=== PATIENT | female | born 1945 | race Caucasian/White ===

== ENCOUNTER → 2017-10-11 | Outpatient (CLI) | payer MEDICARE, OTHER ==
[~2017-10-11] MED LIST: AMIT-106 PO; AMLO-96 PO; ASPI81TA94 PO; EXEN2PEN SC; FLU180SY9 IM; FLU60SYR30 IM ONLY; GABA-503 PO; INSU100I10 SUBQ; LANI SUBQ; LEV125 PO; LEVO175T42 PO; LEVO200T50 PO; LOSA100T67 PO; NAPR220C12 PO; OMEP-137 PO; PEN1DIS. MC; PRAV20TA66 PO; SITA100T PO; TRAZ-156 PO; TRIA1CAP81 PO
== END ==
LOC: LAB 16:16
PROVIDERS: ATTEND Emergency Medicine
DX: E03.9 Hypothyroidism, unspecified (principal); E11.9 Type 2 diabetes mellitus without complications
CPT/HCPCS: 36415; 83036; 84443

== ENCOUNTER → 2017-10-22 | Outpatient (CLI) | payer MEDICARE, OTHER ==
[~2017-10-22] MED LIST changes: +ZOLCR625PT PO; +ZOLP-358 PO
--- NOTE | 2017-10-22 11:40 | RADIOLOGY IMAGING REPORT ---
[place] [facility] [place] NAME: Maribel So : 1945 MR: [id number] V: [id number] EXAM DATE: ORDERING PHYSICIAN: TRAVON BUSBY TECHNOLOGIST: [place] [facility] [place] So : 1945 Visit/Account:[id number] Date of Sevice: 10/22/2017 BONE MINERAL DENSITY HISTORY: postmenopausal COMPARISON: None. FINDINGS: LUMBAR SPINE: Bone mineral density (BMD) measured from L1-L4 correlates with a Z-score of 2.9 and a T-score of 2.0 which is normal as defined by the World Health Organization. The corresponding risk of fracture in t he lumbar spine is not increased compared with a young adult reference population. HIP: Bone mineral density (BMD) measured in the left hip or femoral neck region correlates with a Z-score of 0.2 and a T-score of -1.0 which is normal as defined by the World Health Organization. The corre sponding risk of fracture in the hip is not increased compared with a young adult reference populatio n. Bone mineral density (BMD) measured in the left Femoral Neck region measures 0.894 g/cm2. IMPRESSION: 1. Lumbar spine: Normal. 2. Left Hip: Normal. 3. Left Femoral Neck: Bone Mineral Density is 0.894 g/cm2. FRAX? WHO Fracture Risk Assessment Tool link: <http://www.shef.ac.uk/FRAX/tool.jsp?locationValue=9> PLEASE NOTE: 1) The World Health Organization defines low BMD as follows: T-score Normal > -1 Osteopenia < -1 and > -2.5 Osteoporosis < -2.5 without fractures Established osteoporosis < -2.5 with fractures 2) In general, you may wish to consider: Diagnosis Treatment Follow-up DEXA Normal BMD Prevention 2-3 years Osteopenia Prevention/therapy 1-2 years Osteoporosis Therapy Yearly 3) Fracture risk estimated from the T-score is more accurate for vertebral fractures (often spontane ous) than for hip fractures. Report Dictated By: Balaji Cha at 10/22/2017 11:30 AM Report E-Signed By: Balaji Cha at 10/22/2017 11:36 AM WSN:[id number]
--- NOTE | 2017-11-13 10:10 | RADIOLOGY IMAGING REPORT ---
FACILITY: [facility] PATIENT NAME: MARISABEL CHINCHILLA : [id number] MR: [id number] V: [id number] EXAM DATE: [id number] ORDERING PHYSICIAN: TRAVON BUSBY TECHNOLOGIST: Manuela Gregorio PROCEDURE:BILATERAL DIGITAL SCREENING MAMMOGRAM WITH CAD ASSISTED INTERPRETATION & 3D TOMOSYNTHESIS COMPARISON:None are available at this time. The previous mammograms have been requested however they have not been received. If these mammograms do become available an addendum can be dictated at that time. INDICATIONS:postmenopausal FINDINGS: Mildly heterogeneous fibroglandular tissue is seen throughout the breasts. There are several focal areas of increased density in the upper portion of the Right breast in the Right MLO view for which a sport compression view is recommended. There are several focal areas of increased density in the upper portion of the Left breast on the Left MLO view for which spot compression view is recommended. DIAGNOSTIC CATEGORY 0--INCOMPLETE: NEED ADDITIONAL IMAGING EVALUATION. RECOMMENDATIONS: ADDITIONAL MAMMOGRAPHIC VIEWS REQUIRED: BILATERAL BREASTS. IMPRESSION: BIRADS 0: Incomplete Additional views of both breasts is recommended as described. Dictated by: Paola Gonzalez M.D. on 11/12/2017 at 17:09 Transcribed by: ARLETTE on 11/13/2017 at 8:24 Approved by: Paola Gonzalez M.D. on 11/13/2017 at 10:09 [facility]
== END ==
LOC: MAMO 02:26
PROVIDERS: ATTEND Emergency Medicine
DX: Z13.820 Encounter for screening for osteoporosis (principal); Z12.31 Encounter for screening mammogram for malignant neoplasm of breast; Z78.0 Asymptomatic menopausal state; R92.8 Other abnormal and inconclusive findings on diagnostic imaging of breast
CPT/HCPCS: 77063; 77067; 77080

== ENCOUNTER 2017-11-19 10:48 | Observation (INO) | payer MEDICARE, OTHER ==
[~2017-11-19] VITALS: Ht 167.6 cm; Wt 93.2 kg
[2017-11-19] MEDS ORDERED: NS(*) 0.9% 500 ML BAG 500 ML IV ONE (10:56)
--- NOTE | 2017-11-19 11:03 | ER Report ---
History and Physical Time Seen By : 11:03 Hx. of Stated Complaint: weakness, syncope dysuria voiding 40 times daily HPI/ROS 72 year old female body aches weakness and dysuria x 4 days , unsteady on feet, today was being interviewed while sitting up in the er and had a syncopal episode, recovered when layed flat, orthostatics checked and was not orthostatic . recent med change for hypothyroidism and new script ambien for insomnia Allergies: Coded Allergies: codeine (Verified Allergy, Intermediate, rash, 11/19/17) Home Meds Active Scripts Zolpidem Tartrate (ZOLPIDEM TARTRATE) 10 Mg Tablet, 0.5 TAB PO QHS, #14 TAB Take half to one tab at night as needed. Prov:TRAVON BUSBY MD 11/15/17 Losartan Potassium (LOSARTAN POTASSIUM) 100 Mg Tablet, 100 MG PO DAILY, #90 TAB 3 Refills Prov:TRAVON BUSBY MD 10/26/17 Levothyroxine Sodium (LEVOTHYROXINE SODIUM) 0.125 Mg Tab, 1 TAB PO QDAY, #45 TAB 0 Refills Prov:TRAVON BUSBY MD 10/12/17 Insulin Glargine,Hum.rec.anlog (Basaglar Kwikpen U-100) 100 Unit/Ml (3 Ml) Insuln.pen, 60 UNITS SUBQ DAILY, #2 BOX 7 Refills Prov:TRAVON BUSBY MD 10/01/17 Pen Needle, Diabetic, Safety (PEN NEEDLE) 1 Each Dis.needle, BOX [facility] DIRECTED , #1 1 Refill use to inject Bydureon weekly Prov:TRAVON BUSBY MD 08/15/17 Exenatide Microspheres (Bydureon Pen) 2 Mg/0.65 Ml Pen.injctr, 2 MG SC Q7DAY, # 4 CART 11 Refills Prov:TRAVON BUSBY MD 08/15/17 Omeprazole (OMEPRAZOLE) 20 Mg Tablet.dr, 20 MG PO DAILY, #90 TAB 3 Refills Prov:TRAVON BUSBY MD 08/15/17 Reported Medications Aspirin (ASPIRIN) 81 Mg Tab.chew, 81 MG PO DAILY, TAB.CHEW 07/25/17 Triamterene/Hydrochlorothiazid (DYAZIDE 37.5-25 CAPSULE) 1 Each Capsule, 1 CAP PO DAILY, CAPSULE 07/25/17 Discontinued Reported Medications Gabapentin (GABAPENTIN) 600 Mg Tablet, 600 MG PO DAILY, TAB 08/15/17 Discontinued Scripts Zolpidem Tartrate (AMBIEN CR) 6.25 Mg Tab.mphase, 1 TAB PO QODAY, #14 TAB 5 Refills Prov:KEHINDETRAVON Murphy MD 10/26/17 Past Medical/Surgical History History of hypertension, GERD, hypothyroidism, type II diabetes Reviewed Nurses Notes: Yes Old Medical Records Reviewed: Yes Smoking Status: Never Smoker Family History of: HTN Constitutional Vital Sign - Last 24 Hours 11/19/17 11/19/17 11/19/17 11/19/17 10:48 10:53 10:58 11:00 Pulse 81 91 90 B/P (MAP) 107/75 (86) Pulse Ox 98 96 11/19/17 11/19/17 11/19/17 11/19/17 11:00 11:03 11:08 11:13 Temp 98.1 Pulse 69 86 83 78 Resp 16 B/P (MAP) 153/81 Pulse Ox 96 100 99 95 11/19/17 11/19/17 11/19/17 11/19/17 11:25 11:27 11:27 11:28 Pulse 61 62 70 B/P (MAP) 171/88 (115) 170/85 (113) 171/88 (115) Pulse Ox 97 97 11/19/17 11/19/17 11/19/17 11/19/17 11:28 11:42 11:55 12:00 Pulse 63 54 B/P (MAP) 165/87 (113) 174/94 (120) ???/??? (1665) Pulse Ox 97 95 11/19/17 11/19/17 11/19/17 11/19/17 12:15 12:25 12:30 12:45 Pulse 55 B/P (MAP) 154/87 (109) 163/81 (108) 159/77 (104) Pulse Ox 96 11/19/17 11/19/17 11/19/17 11/19/17 12:55 13:00 13:11 13:15 Pulse 56 B/P (MAP) 164/76 (105) 172/118 (136) 157/82 (107) Pulse Ox 94 11/19/17 11/19/17 11/19/1718 13:20 13:50 14:00 14:15 Pulse 55 60 B/P (MAP) 157/79 (105) 151/136 (141) Pulse Ox 95 94 Intake and Output 11/19/17 11/19/17 11/20/17 15:00 23:00 07:00 Intake Total 550 ml Balance 550 ml Physical Exam 72-year-old female alert anxious mild distress HEENT has normocephalic atraumatic pupils are equal reactive to light EOM intact tympanic membranes are non-reddened throat is non-reddened neck is supple no JVD heart rate is regular no murmurs rubs and gallops lungs clear to auscultation abdomen is obese soft bowel sounds 4 quadrants moves all extremities no focal deficits neurologically grossly intact 2-12, gcs 15 Medical Decision Making Data Points Result Diagram: 11/19/17 1104 11/19/17 1104 Laboratory Hematology Test 11/19/17 11:04 11/19/17 11:11 11/19/17 11:25 11/19/17 12:40 Red Blood Count 4.92 M/uL (4.17-5.56) Mean Corpuscular Volume 83.7 fL (80.0-96.0) Mean Corpuscular Hemoglobin 28.7 pg (26.0-33.0) Mean Corpuscular Hemoglobin Concent 34.3 g/dL (32.0-36.0) Red Cell Distribution Width 13.2 % (11.5-14.5) Mean Platelet Volume 7.9 fL (7.2-11.1) Neutrophils (%) (Auto) 62.1 % (39.4-72.5) Lymphocytes (%) (Auto) 26.1 % (17.6-49.6) Monocytes (%) (Auto) 7.4 % (4.1-12.4) Eosinophils (%) (Auto) 3.4 % (0.4-6.7) Basophils (%) (Auto) 1.0 % (0.3-1.4) Nucleated RBC Relative Count (auto) 0.2 /100WBC Neutrophils # (Auto) 2.9 K/uL (2.0-7.4) Lymphocytes # (Auto) 1.2 K/uL (1.3-3.6) Monocytes # (Auto) 0.3 K/uL (0.3-1.0) Eosinophils # (Auto) 0.2 K/uL (0.0-0.5) Basophils # (Auto) 0.0 K/uL (0.0-0.1) Nucleated RBC Absolute Count (auto) 0.01 K/uL Erythrocyte Sedimentation Rate 27 mm/HOUR (0-30) Sodium Level 136 mmol/L (137-145) Potassium Level 3.6 mmol/L (3.5-5.0) Chloride Level 100 mmol/L (98-107) Carbon Dioxide Level 21 mmol/L (22-31) Blood Urea Nitrogen 19 mg/dl (7-18) Creatinine 1.60 mg/dl (0.52-1.04) Glomerular Filtration Rate Calc 31.8 Random Glucose 112 mg/dl (75-110) Calcium Level 9.6 mg/dl (8.4-10.2) Magnesium Level 1.3 mg/dl (1.7-2.2) Total Bilirubin 0.6 mg/dl (0.2-1.3) Aspartate Amino Transf (AST/SGOT) 24 U/L (0-35) Alanine Aminotransferase (ALT/SGPT) 34 U/L (0-56) Alkaline Phosphatase 77 U/L (0-126) Troponin I < 0.012 ng/ml C-Reactive Protein < 0.5 mg/dl (<1.0) Total Protein 7.0 gm/dl (6.3-8.2) Albumin 3.8 g/dl (3.5-5.0) Thyroid Stimulating Hormone (TSH) 2.26 uIU/ml (0.46-4.68) Influenza Virus Type A (PCR) Negative (NEGATIVE) Influenza Virus Type B (PCR) Negative (NEGATIVE) Whole Blood Glucose 95 mg/DL (75-110) Group A Streptococcus Screen Negative (NEGATIVE) Test 11/19/17 13:13 Urine Color Yellow Urine Clarity Clear Urine pH 6.0 pH (4.8-9.5) Urine Specific [place] 1.010 Urine Protein Negative mg/dL (NEGATIVE) Urine Glucose (UA) Negative mg/dL (NEGATIVE) Urine Ketones Negative mg/dL (NEGATIVE) Urine Blood Negative (NEGATIVE) Urine Nitrite Negative (NEGATIVE) Urine Bilirubin Negative (NEGATIVE) Urine Urobilinogen Negative mg/dL (0.2-1.9) Urine Leukocyte Esterase Trace (NEGATIVE) Urine RBC <1 /HPF (0-2/HPF) Urine WBC 3 /HPF (0-5/HPF) Urine Squamous Epithelial Cells Many /LPF (</=FEW) Urine Bacteria Negative /HPF (NONE-FEW) Urine Hyaline Casts Few /LPF (NONE-FEW) Urine Mucus None /HPF (NONE-FEW) Chemistry Test 11/19/17 11:04 11/19/17 11:11 11/19/17 11:25 11/19/17 12:40 White Blood Count 4.7 k/uL (4.5-11.0) Red Blood Count 4.92 M/uL (4.17-5.56) Hemoglobin 14.1 g/dL (12.0-16.0) Hematocrit 41.1 % (34.0-47.0) Mean Corpuscular Volume 83.7 fL (80.0-96.0) Mean Corpuscular Hemoglobin 28.7 pg (26.0-33.0) Mean Corpuscular Hemoglobin Concent 34.3 g/dL (32.0-36.0) Red Cell Distribution Width 13.2 % (11.5-14.5) Platelet Count 211 K/uL (150-450) Mean Platelet Volume 7.9 fL (7.2-11.1) Neutrophils (%) (Auto) 62.1 % (39.4-72.5) Lymphocytes (%) (Auto) 26.1 % (17.6-49.6) Monocytes (%) (Auto) 7.4 % (4.1-12.4) Eosinophils (%) (Auto) 3.4 % (0.4-6.7) Basophils (%) (Auto) 1.0 % (0.3-1.4) Nucleated RBC Relative Count (auto) 0.2 /100WBC Neutrophils # (Auto) 2.9 K/uL (2.0-7.4) Lymphocytes # (Auto) 1.2 K/uL (1.3-3.6) Monocytes # (Auto) 0.3 K/uL (0.3-1.0) Eosinophils # (Auto) 0.2 K/uL (0.0-0.5) Basophils # (Auto) 0.0 K/uL (0.0-0.1) Nucleated RBC Absolute Count (auto) 0.01 K/uL Erythrocyte Sedimentation Rate 27 mm/HOUR (0-30) Glomerular Filtration Rate Calc 31.8 Calcium Level 9.6 mg/dl (8.4-10.2) Magnesium Level 1.3 mg/dl (1.7-2.2) Total Bilirubin 0.6 mg/dl (0.2-1.3) Aspartate Amino Transf (AST/SGOT) 24 U/L (0-35) Alanine Aminotransferase (ALT/SGPT) 34 U/L (0-56) Alkaline Phosphatase 77 U/L (0-126) Troponin I < 0.012 ng/ml C-Reactive Protein < 0.5 mg/dl (<1.0) Total Protein 7.0 gm/dl (6.3-8.2) Albumin 3.8 g/dl (3.5-5.0) Thyroid Stimulating Hormone (TSH) 2.26 uIU/ml (0.46-4.68) Influenza Virus Type A (PCR) Negative (NEGATIVE) Influenza Virus Type B (PCR) Negative (NEGATIVE) Whole Blood Glucose 95 mg/DL (75-110) Group A Streptococcus Screen Negative (NEGATIVE) Test 11/19/17 13:13 Urine Color Yellow Urine Clarity Clear Urine pH 6.0 pH (4.8-9.5) Urine Specific [place] 1.010 Urine Protein Negative mg/dL (NEGATIVE) Urine Glucose (UA) Negative mg/dL (NEGATIVE) Urine Ketones Negative mg/dL (NEGATIVE) Urine Blood Negative (NEGATIVE) Urine Nitrite Negative (NEGATIVE) Urine Bilirubin Negative (NEGATIVE) Urine Urobilinogen Negative mg/dL (0.2-1.9) Urine Leukocyte Esterase Trace (NEGATIVE) Urine RBC <1 /HPF (0-2/HPF) Urine WBC 3 /HPF (0-5/HPF) Urine Squamous Epithelial Cells Many /LPF (</=FEW) Urine Bacteria Negative /HPF (NONE-FEW) Urine Hyaline Casts Few /LPF (NONE-FEW) Urine Mucus None /HPF (NONE-FEW) Urinalysis Test 11/19/17 13:13 Urine Color Yellow Urine Clarity Clear Urine pH 6.0 pH (4.8-9.5) Urine Specific [place] 1.010 Urine Protein Negative mg/dL (NEGATIVE) Urine Glucose (UA) Negative mg/dL (NEGATIVE) Urine Ketones Negative mg/dL (NEGATIVE) Urine Blood Negative (NEGATIVE) Urine Nitrite Negative (NEGATIVE) Urine Bilirubin Negative (NEGATIVE) Urine Urobilinogen Negative mg/dL (0.2-1.9) Urine Leukocyte Esterase Trace (NEGATIVE) Urine RBC <1 /HPF (0-2/HPF) Urine WBC 3 /HPF (0-5/HPF) Urine Squamous Epithelial Cells Many /LPF (</=FEW) Urine Bacteria Negative /HPF (NONE-FEW) Urine Hyaline Casts Few /LPF (NONE-FEW) Urine Mucus None /HPF (NONE-FEW) EKG/Imaging EKG Interpretation EKG at 1104 normal sinus rhythm ventricular rate 68 QTC is 469 and unchanged from previous EKG dated 07/25/2017 ED Course/Re-evaluation Clinical Indication for ER IV: Hydration ED Course In the emergency room was given normal saline at 500 mL bolus and 100 mL an hour was even magnesium 2 g IV piggyback and felt some better after treatment still becomes weak when sitting Re-evaluation Talk the hospitalist Dr. Holli Colby she agrees to accept this patient will be admitted from the emergency room Decision to Disposition Date: Nov 19, 2017 Decision to Disposition Time: 14:06 Depart Departure Latest Vital Signs Vital Signs Date Time Temp Pulse Resp B/P (MAP) Pulse Ox O2 Delivery O2 Flow Rate FiO2 11/19/17 14:15 151/136 (141) 11/19/17 13:50 60 94 11/19/17 11:00 98.1 16 Impression: Primary Impression: Syncope and collapse Additional Impression: Hypomagnesemia Condition: Improved Disposition: Admitted from ER Referrals: TRAVON BUSBY MD (PCP) Problem Qualifiers VASHTI MERCHANT Nov 19, 2017 11:03
[2017-11-19 11:25] LABS: PLATELET COUNT, AUTOMATED 211 K/uL (150-450)
[2017-11-19] MEDS ORDERED: MAGNESIUM SUL* 2 GM/50 ML IVPB 50 ML IVPB ONE (11:45)
--- NOTE | 2017-11-19 12:09 | RADIOLOGY IMAGING REPORT ---
FACILITY: [facility] [place] PATIENT NAME: Maribel So : 1945 MR: [id number] V: [id number] EXAM DATE: ORDERING PHYSICIAN: VASHTI MERCHANT TECHNOLOGIST: Location: [facility] Patient: Maribel So : 1945 Visit/Account:[id number] Date of Sevice: 11/19/2017 CHEST SINGLE AP Indication: Fever. Comparison: 07/25/2017. Findings: Cardiac silhouette is upper limits of normal for size for the technique. Not significantly changed. M ediastinal silhouette and pulmonary vessels within normal limits. There is no focal infiltrate or lobar consolidation. No nodule. Chronic interstitial changes. Upper abdomen is unremarkable. No acute bony abnormality. IMPRESSION: 1. No acute cardiopulmonary process. Report Dictated By: Pedro Martinez at 11/19/2017 12:01 PM Report E-Signed By: Pedro Martinez at 11/19/2017 12:04 PM WSN:[id number]
--- NOTE | 2017-11-19 12:41 | RADIOLOGY IMAGING REPORT ---
FACILITY: [facility] PATIENT NAME: Maribel So : 1945 MR: [id number] V: [id number] EXAM DATE: ORDERING PHYSICIAN: VASHTI MERCHANT TECHNOLOGIST: Location: [facility] - [place] Patient: Maribel So : 1945 Visit/Account:[id number] Date of Sevice: 11/19/2017 CT OF THE BRAIN WITHOUT CONTRAST HISTORY: Fever PROCEDURE: 3.0 mm contiguous axial sections were performed through the brain. Sagittal and coronal r eformats were submitted. COMPARISON: None FINDINGS: BRAIN: Brain and intracranial structures: There is no mass lesion, hemorrhage or acute infarct. Orbits (included portions): Unremarkable. Scalp: Normal. Skull: Normal. Paranasal sinuses and mastoid air cells (included portions): Normal. IMPRESSION: No evidence of acute intracranial abnormality by CT. One of the following dose optimization techniques was utilized in the performance of this exam: Autom ated exposure control; adjustment of the mA and/or kV according to the patient's size; or use of an i terative reconstruction technique. Specific details can be referenced in the facility's radiology C T exam operational policy. Report Dictated By: Farooq Rodriguez MD at 11/19/2017 12:23 PM Report E-Signed By: Farooq Rodriguez MD at 11/19/2017 12:36 PM WSN:[id number]
--- NOTE | 2017-11-19 12:50 | EKG ---
[place] [facility] [place] NAME: MARISABEL CHINCHILLA : [id number] MR: [id number] V: [id number] EXAM DATE: ORDERING PHYSICIAN: VASHTI MERCHANT TECHNOLOGIST: Test Reason : SYNCOPE Blood Pressure : / mmHG Vent. Rate : 068 BPM Atrial Rate : 068 BPM P-R Int : 200 ms QRS Dur : 090 ms QT Int : 442 ms P-R-T Axes : 021 -47 045 degrees QTc Int : 469 ms Normal sinus rhythm Left axis deviation Septal infarct (cited on or before 25-JUL-2017) Abnormal ECG When compared with ECG of 25-JUL-2017 10:55, Questionable change in initial forces of Septal leads Confirmed by CHIDI KIM ([id number]) on 11/19/2017 8:07:30 PM Referred By: RICO Confirmed By:CHIDI KIM
[2017-11-19 15:14] VITALS: BP 197/88
[2017-11-19] MEDS ORDERED: GABA-503 PO (15:47)
[2017-11-19] MEDS ORDERED: NS(*) 0.9% 1000 ML BAG 1,000 ML IV PRN (16:17)
[2017-11-19] MEDS ORDERED: ACETAMINOPHEN 325 MG TAB PO PRN (16:20)
[2017-11-19] MEDS ORDERED: INSULIN HUM LISPRO 100 UN/ML 3 ML VIAL SUBQ PRN (16:20)
--- NOTE | 2017-11-19 17:26 | History & Physical ---
History of Present Illness Chief Complaint Has been feeling horrible. Syncopal episode in ER History of Present Illness The patient is a 72 year old female with PMH significant for type II DM and HTN who presents with "not feeling well" for several weeks. History is obtained from the patient and her . The patient was started on Bydurean about 2 months ago and takes one SQ injection weekly. She has been on Lantus as well. She notes that she has increased her Lantus on her own from 60 to 64 units q am. She did this several days ago and then began having "sweats" at times. She checks her blood sugars in the morning only. She states that her last am blood sugar check was 84 prior to admission. The patient also notes that she can not do much without stopping to rest. Her notes that this is very unusual for her and she is usually very energetic. She has tried to exercise but can't due to needing to stop and rest. She has lived in [place] for over 6 months. She lived in [place], [place] for 2 months prior to moving to [place] (elevation [phone]'). Prior to that she lived in [place]. She does have a strong FH of CAD. Her father had his first ME at age 47. The patient has multiple risk factors including HTN, type II DM and hyperlipidemia (pravastatin was recommended but she declined it). She has never smoked. The patient states she occasionally has chest pressure. She does get short of breath at times as well. The patient also notes that she recently "weaned" herself off of gabapentin. She misunderstood what why she was taking it (she thought it was for "nerves" instead of neuropathy). She has neuropathy and her symptoms have worsened since stopping it completely 2 weeks ago. She also notes that she has started having an increase in panic attacks which were much better while she was on the gabapentin. The patient also has a long history of insomnia. She has taken Ambien in the past but ran out and didn't get a refill. She recently was restarted on Ambien by Dr. Lopez. She has severe night terrors and nightmares with melatonin. She has tried trazodone without any result. The OTC meds such as Tylenol PM have the opposite effect on her. The patient presented to [facility] ER today for evaluation. While she was getting undressed, she had a syncopal episode (prior to being placed on the monitor). EKG showed no acute ischemic changes. Troponin was negative. She was found to have a low magnesium level and was given 2 grams in the ER. She had an elevated creatinine as well. She was recommended for admission for observation and further evaluation. History Problems: (1) Lower extremity edema Status: Chronic (2) Hyperlipidemia Status: Chronic (3) Hypertension Status: Chronic (4) Hypothyroidism Status: Chronic (5) GERD (gastroesophageal reflux disease) Status: Chronic (6) Insulin-requiring or dependent type II diabetes mellitus Status: Chronic (7) Obesity Status: Chronic (8) Hx of tubal ligation Status: Resolved (9) H/O: hysterectomy Status: Resolved (10) S/P appy Status: Resolved Home Meds Active Scripts Zolpidem Tartrate (ZOLPIDEM TARTRATE) 10 Mg Tablet, 0.5 TAB PO QHS, #14 TAB Take half to one tab at night as needed. Prov:TRAVON LOPEZ MD 11/15/17 Losartan Potassium (LOSARTAN POTASSIUM) 100 Mg Tablet, 100 MG PO DAILY, #90 TAB 3 Refills Prov:TRAVON LOPEZ MD 10/26/17 Levothyroxine Sodium (LEVOTHYROXINE SODIUM) 0.125 Mg Tab, 1 TAB PO QDAY, #45 TAB 0 Refills Prov:TRAVON LOPEZ MD 10/12/17 Insulin Glargine,Hum.rec.anlog (Basaglar Kwikpen U-100) 100 Unit/Ml (3 Ml) Insuln.pen, 60 UNITS SUBQ DAILY, #2 BOX 7 Refills Prov:TRAVON LOPEZ MD 10/01/17 Pen Needle, Diabetic, Safety (PEN NEEDLE) 1 Each Dis.needle, BOX MC DIRECTED , #1 1 Refill use to inject Bydureon weekly Prov:TRAVON LOPEZ MD 08/15/17 Exenatide Microspheres (Bydureon Pen) 2 Mg/0.65 Ml Pen.injctr, 2 MG SC Q7DAY, # 4 CART 11 Refills Prov:TRAVON LOPEZ MD 08/15/17 Omeprazole (OMEPRAZOLE) 20 Mg Tablet.dr, 20 MG PO DAILY, #90 TAB 3 Refills Prov:TRAVON LOPEZ MD 08/15/17 Reported Medications Gabapentin (GABAPENTIN) 600 Mg Tablet, 600 MG PO QDAY 11/19/17 Aspirin (ASPIRIN) 81 Mg Tab.chew, 81 MG PO DAILY, TAB.CHEW 07/25/17 Triamterene/Hydrochlorothiazid (DYAZIDE 37.5-25 CAPSULE) 1 Each Capsule, 1 CAP PO DAILY, CAPSULE 07/25/17 Discontinued Reported Medications Gabapentin (GABAPENTIN) 600 Mg Tablet, 600 MG PO DAILY, TAB 08/15/17 Discontinued Scripts Zolpidem Tartrate (AMBIEN CR) 6.25 Mg Tab.mphase, 1 TAB PO QODAY, #14 TAB 5 Refills Prov:TRAVON LOPEZ MD 10/26/17 Allergies: Coded Allergies: codeine (Verified Allergy, Intermediate, rash, 11/19/17) melatonin (Verified Allergy, Mild, Nightmares/night terrors, 11/19/17) Patient History: FH: COPD (chronic obstructive pulmonary disease) FATHER, , Age:85 BROTHER OR SISTER, FH: cancer MOTHER (Throat cancer ), , Age:70 (throat cancer initially, in remission for 17 years; then bone, lung, brain cancer. ) FH: heart disease FATHER, , Age:85, Onset:40's - 50 Hx Smoking: No Smoking Status: Never Smoker Caffeine Intake: Coffee Caffeine/Cups Per Day: 1 cup/day Hx Alcohol Use: No Hx Substance Use Disorder: No Social Drug Use: Never History of IV Drug Use: No Review of Systems Constitutional: Weight Loss (Since starting Bydureon.), Other (Sweats at times for several days.) Neurological: Syncope, Weakness, Dizziness Eyes: No Vision Change ENT: No Hearing Loss Cardiovascular: Chest Pain (Occasional.) Respiratory: Shortness of Breath, No Cough Gastrointestinal: Nausea (Mild with Bydureon. ), No Vomiting, No Diarrhea Genitourinary: No Dysuria Musculoskeletal: No Pain Psychiatric: Anxiety (Panic attacks since stopping gabapentin.) Exam Vital Signs Vital Signs Date Time Temp Pulse Resp B/P (MAP) Pulse Ox O2 Delivery O2 Flow Rate FiO2 11/19/17 15:14 97.6 55 197/88 (124) 94 Room Air 11/19/17 11:00 16 General Appearance: Alert, Awake, Other (Appears sligthly anxious.) Neuro: Other (Occasional difficulty finding words. ) Cardiovascular: Regular Rate and Rhythm Respiratory: Clear to Auscultation GI: Abd Soft and Non-Tender Extremities: Warm, Pulses (Full and equal, both feet.), Perfused Integumentary: Skin Intact without Lesion / Mass Psych: Alert & Oriented X3, Appropriate Mood & Affect Medical Decision Making Data Points Result Diagram: 11/19/17 1104 11/19/17 1104 Item Value Date Time Triglycerides Level 259 mg/dl H 08/16/17 1007 Cholesterol Level 263 mg/dl H 08/16/17 1007 LDL Cholesterol 166 mg/dl 08/16/17 1007 VLDL Cholesterol 52 mg/dl 08/16/17 1007 HDL Cholesterol 45 mg/dl 08/16/17 1007 Percent HDL Cholesterol 17.0 % 08/16/17 1007 Cholesterol Ratio (LDL/HDL) 3.68 08/16/17 1007 Cholesterol/HDL Ratio 5.8 08/16/17 1007 Item Value Date Time Random Glucose 112 mg/dl H 11/19/17 1104 Calcium Level 9.6 mg/dl 11/19/17 1104 Total Bilirubin 0.6 mg/dl 11/19/17 1104 Aspartate Amino Transf (AST/SGOT) 24 U/L 11/19/17 1104 Alanine Aminotransferase (ALT/SGPT) 34 U/L 11/19/17 1104 Alkaline Phosphatase 77 U/L 11/19/17 1104 Total Protein 7.0 gm/dl 11/19/17 1104 Albumin 3.8 g/dl 11/19/17 1104 C-Reactive Protein < 0.5 mg/dl 11/19/17 1104 Magnesium Level 1.3 mg/dl L 11/19/17 1104 Troponin I < 0.012 ng/ml 11/19/17 1104 Thyroid Stimulating Hormone (TSH) 2.26 uIU/ml 11/19/17 1104 Influenza Virus Type A (PCR) Negative 11/19/17 1111 Influenza Virus Type B (PCR) Negative 11/19/17 1111 Group A Streptococcus Screen Negative 11/19/17 1240 Urine Color Yellow 11/19/17 1313 Urine Clarity Clear 11/19/17 1313 Urine pH 6.0 pH 11/19/17 1313 Urine Specific [place] 1.010 11/19/17 1313 Urine Protein Negative mg/dL 11/19/17 1313 Urine Glucose (UA) Negative mg/dL 11/19/17 1313 Urine Ketones Negative mg/dL 11/19/17 1313 Urine Blood Negative 11/19/17 1313 Urine Nitrite Negative 11/19/17 1313 Urine Bilirubin Negative 11/19/17 1313 Urine Urobilinogen Negative mg/dL 11/19/17 1313 Urine Leukocyte Esterase Trace H 11/19/17 1313 Urine RBC <1 /HPF 11/19/17 1313 Urine WBC 3 /HPF 11/19/17 1313 Urine Squamous Epithelial Cells Many /LPF H 11/19/17 1313 Urine Bacteria Negative /HPF 11/19/17 1313 Urine Hyaline Casts Few /LPF 11/19/17 1313 Urine Mucus None /HPF 11/19/17 1313 EKG / Imaging EKG Interpretation FACILITY: [facility] [place] PATIENT NAME: MARIBEL SO : [id number] MR: [id number] V: [id number] EXAM DATE: ORDERING PHYSICIAN: VASHTI MERCHANT TECHNOLOGIST: Test Reason : SYNCOPE Blood Pressure : / mmHG Vent. Rate : 068 BPM Atrial Rate : 068 BPM P-R Int : 200 ms QRS Dur : 090 ms QT Int : 442 ms P-R-T Axes : 021 -47 045 degrees QTc Int : 469 ms Normal sinus rhythm Left axis deviation Low voltage QRS Septal infarct (cited on or before 25-JUL-2017) Abnormal ECG When compared with ECG of 25-JUL-2017 10:55, Questionable change in initial forces of Septal leads Referred By: SOPR Confirmed By: 1104 T: / Imaging FACILITY: [facility] [place] PATIENT NAME: Maribel So : 1945 MR: [id number] V: [id number] EXAM DATE: [id number] ORDERING PHYSICIAN: VASHTI MERCHANT TECHNOLOGIST: Location: [facility] [place] Patient: Maribel So : 1945 Visit/Account:[id number] Date of Sevice: 11/19/2017 CT OF THE BRAIN WITHOUT CONTRAST HISTORY: Fever PROCEDURE: 3.0 mm contiguous axial sections were performed through the brain. Sagittal and coronal reformats were submitted. COMPARISON: None FINDINGS: BRAIN: Brain and intracranial structures: There is no mass lesion, hemorrhage or acute infarct. Orbits (included portions): Unremarkable. Scalp: Normal. Skull: Normal. Paranasal sinuses and mastoid air cells (included portions): Normal. IMPRESSION: No evidence of acute intracranial abnormality by CT. One of the following dose optimization techniques was utilized in the performance of this exam: Automated exposure control; adjustment of the mA and/ or kV according to the patient's size; or use of an iterative reconstruction technique. Specific details can be referenced in the facility's radiology CT exam operational policy. Report Dictated By: Farooq Rodriguez MD at 11/19/2017 12:23 PM Report E-Signed By: Farooq Rodriguez MD at 11/19/2017 12:36 PM WSN:[id number] FACILITY: [facility] [place] PATIENT NAME: Maribel So : 1945 MR: [id number] V: [id number] EXAM DATE: ORDERING PHYSICIAN: VASHTI MERCHANT TECHNOLOGIST: Location: [facility] [place] Patient: Maribel So : 1945 Visit/Account:[id number] Date of Sevice: 11/19/2017 CHEST SINGLE AP Indication: Fever. Comparison: 07/25/2017. Findings: Cardiac silhouette is upper limits of normal for size for the technique. Not significantly changed. Mediastinal silhouette and pulmonary vessels within normal limits. There is no focal infiltrate or lobar consolidation. No nodule. Chronic interstitial changes. Upper abdomen is unremarkable. No acute bony abnormality. IMPRESSION: 1. No acute cardiopulmonary process. Report Dictated By: Pedro Martinez at 11/19/2017 12:01 PM Report E-Signed By: Pedro Martinez at 11/19/2017 12:04 PM WSN:[id number] Pre-Admit Course Medical Record Review: Yes (Dr. Lopez's notes.) Assessment and Plan Problems: (1) Syncope and collapse Status: Acute Assessment & Plan: The patient had a witnessed syncopal episode in ER. Will admit and monitor on telemetry. Her magnesium level was low in ER and she did receive 2g while in ER. Will repeat a magnesium level in am. Will gently hydrate. (2) Fatigue Status: Acute Assessment & Plan: The patient complains of fatigue. She has been having to stop and rest frequently with any exertion. She has had vague chest pain and dyspnea as well. She has multiple risk factors for CAD. Recommend a cardiac ETT as an outpatient shortly after discharge. (3) Hypomagnesemia Status: Acute Assessment & Plan: She received 2g in ER. Will repeat level in am. (4) Insulin-requiring or dependent type II diabetes mellitus Status: Chronic Assessment & Plan: The patient has been taking 64u of Lantus each morning in addition to once weekly Bydureon. Will DC Bydureon. Her history of intermittent sweating in the evening may be due to bouts of hypoglycemia. Blood sugars today have been controlled despite being past due for her weekly Bydureon injection and not taking her Lantus this am. Will restart gabapentin for neuropathy. She was taking 600mg daily. Will restart at 300mg at HS. (5) Hypertension Status: Chronic Assessment & Plan: Continue losartan 100mg daily with parameters. (6) Hypothyroidism Status: Chronic Assessment & Plan: TSH is normal. Continue levothyroxine. (7) GERD (gastroesophageal reflux disease) Status: Chronic Assessment & Plan: She is on omeprazole at home. Will place on pantoprazole here. (8) Hyperlipidemia Status: Chronic Assessment & Plan: Blood work 08/16/[address] Lopez was abnormal (high total cholesterol, LDL and TGs and low HDL) and it was recommended the patient start pravastatin but she declined. (9) Lower extremity edema Status: Chronic Assessment & Plan: Will hold her diuretic for now. (10) Obesity Status: Chronic Time Spent on Plan of Care: < 30 min Venous Thromboembolism VTE Risk Physician Assess for VTE Risk: Yes Patient's VTE Risk: Low VTE Diagnostic Test 2 Days Prior to Admit: No Antithrombotics Is Pt On Any Antithrombotics?: Yes (Aspirin daily. ) Exam Sepsis Risk: No Definite Risk Problem Qualifiers (1) Obesity: Body mass index: BMI 33.0-33.9 CHIDI MARTINEZ MD Nov 19, 2017 17:26
[2017-11-19 19:43] VITALS: BP 188/87
[2017-11-19] MEDS ORDERED: LOSARTAN POTASSIUM 50 MG TAB PO ONE (20:20)
[2017-11-19] MEDS ORDERED: ZOLPIDEM TARTRATE 10 MG TAB PO PRN (20:35)
[2017-11-19] MEDS ORDERED: GABAPENTIN 300 MG CAP PO SCH (21:00)
[2017-11-20 05:36] VITALS: BP 147/97
[2017-11-20] MEDS ORDERED: LEVOTHYROXINE SOD 0.125 MG TAB PO SCH (06:00)
[2017-11-20 07:01] VITALS: BP 162/81
[2017-11-20] MEDS ORDERED: PANTOPRAZOLE SOD 40 MG TABEC PO SCH (09:00)
[2017-11-20] MEDS ORDERED: LOSARTAN POTASSIUM 50 MG TAB PO SCH (09:00)
[2017-11-20] MEDS ORDERED: ASPIRIN 81 MG CHEW PO SCH (09:00)
[2017-11-20] MEDS ORDERED: INSULIN GLARGINE 100 U/ML 3 ML PEN SUBQ SCH (09:00)
[2017-11-20 11:11] VITALS: BP 154/86
[2017-11-20] MEDS ORDERED: MAGNESIUM SUL* 2 GM/50 ML IVPB 50 ML IVPB ONE (11:30)
[2017-11-20 12:23] VITALS: Ht 167.6 cm; Wt 93.2 kg
--- NOTE | 2017-11-20 14:35 | Hospitalist Depart ---
Discharge Summary Reason for Hosp/Final Diag: (1) Syncope and collapse Status: Acute Hospital Course & Plan: The patient presented with "not feeling well" for several weeks and had a witnessed syncopal episode in ER. She hasn't had any more episodes since admission. Her glucose has been ranging from 73-109 despite not getting Lantus yesterday. She describes symptoms of sweats in the evening, that in hindsight seem to be hypoglycemia related. Her symptoms of not feeling well seemed to start with initiation of Exenatide. She didn't get another dose the other day, so it's affects should be waning. The patient feels much better this morning. Better than she has felt in weeks. She would like to go home and she seems safe to do so. Will not have her restart her Lantus until glucoses are consistently > 150, then will restart at 20 because of the prolonged affect of Exenatide. Will have her increase by 20 when glucoses are consistently >150. (2) Fatigue Status: Acute Hospital Course & Plan: The patient complains of fatigue. She has been having to stop and rest frequently with any exertion. She has had vague chest pain and dyspnea as well. She has multiple risk factors for CAD. Recommend a cardiac ETT as an outpatient shortly after discharge. (3) Hypomagnesemia Status: Acute Hospital Course & Plan: She received 2g in ER and another dose today. BMP and Mg in a few days. (4) Insulin-requiring or dependent type II diabetes mellitus Status: Chronic Hospital Course & Plan: The patient has been taking 64u of Lantus each morning in addition to once weekly Bydureon. Will DC Bydureon. Her history of intermittent sweating in the evening may be due to bouts of hypoglycemia. Blood sugars today have been controlled despite being past due for her weekly Bydureon injection and not taking her Lantus this am. See above. Restarted gabapentin for neuropathy. She was taking 600mg daily. Will restart at 300mg at HS. (5) Hypertension Status: Chronic Hospital Course & Plan: Continue losartan 100mg daily with parameters. (6) Hypothyroidism Status: Chronic Hospital Course & Plan: TSH is normal. Continue levothyroxine. (7) GERD (gastroesophageal reflux disease) Status: Chronic Hospital Course & Plan: She is on omeprazole at home. (8) Hyperlipidemia Status: Chronic Hospital Course & Plan: Blood work 08/16/[address] Lopez was abnormal (high total cholesterol, LDL and TGs and low HDL) and it was recommended the patient start pravastatin but she declined. (9) Lower extremity edema Status: Chronic Hospital Course & Plan: Continue her diuretic for now. (10) Obesity Status: Chronic (11) CKD (chronic kidney disease) stage 3, GFR 30-59 ml/min Departure Weight (Pounds): 205 Weight (Ounces): 6.0 Result Diagram: 11/19/17 1104 11/20/17 0520 Item Value Date Time Blood Urea Nitrogen 19 mg/dl H 11/19/17 1104 Creatinine 1.60 mg/dl H 11/19/17 1104 Random Glucose 112 mg/dl H 11/19/17 1104 Total Bilirubin 0.6 mg/dl 11/19/17 1104 Aspartate Amino Transf (AST/SGOT) 24 U/L 11/19/17 1104 Alkaline Phosphatase 77 U/L 11/19/17 1104 Troponin I < 0.012 ng/ml 11/19/17 1104 C-Reactive Protein < 0.5 mg/dl 11/19/17 1104 Thyroid Stimulating Hormone (TSH) 2.26 uIU/ml 11/19/17 1104 Whole Blood Glucose 95 mg/DL 11/19/17 1125 Magnesium Level 1.3 mg/dl L 11/19/17 1104 Magnesium Level 1.6 mg/dl L 11/20/17 0520 Creatinine 1.40 mg/dl H 11/20/17 0520 Whole Blood Glucose 122 mg/DL H 11/20/17 1129 Whole Blood Glucose 88 mg/DL 11/20/17 0727 Whole Blood Glucose 109 mg/DL 11/19/17 2050 Whole Blood Glucose 73 mg/DL L 11/19/17 1617 Random Glucose 85 mg/dl 11/20/17 0520 Urine Leukocyte Esterase Trace H 11/19/17 1313 Urine RBC <1 /HPF 11/19/17 1313 Urine WBC 3 /HPF 11/19/17 1313 Urine Squamous Epithelial Cells Many /LPF H 11/19/17 1313 Urine Bacteria Negative /HPF 11/19/17 1313 Group A Streptococcus Screen Negative 11/19/17 1240 Influenza Virus Type A (PCR) Negative 11/19/17 1111 Influenza Virus Type B (PCR) Negative 11/19/17 1111 Imaging CXR - 1. No acute cardiopulmonary process. Head CT - No evidence of acute intracranial abnormality by CT. EKG Vent. Rate : 068 BPM Atrial Rate : 068 BPM P-R Int : 200 ms QRS Dur : 090 ms QT Int : 442 ms P-R-T Axes : 021 -47 045 degrees QTc Int : 469 ms Normal sinus rhythm Left axis deviation Septal infarct (cited on or before 25-JUL-2017) Abnormal ECG When compared with ECG of 25-JUL-2017 10:55, Questionable change in initial forces of Septal leads Confirmed by CHIDI KIM ([id number]) on 11/19/2017 8:07:30 PM Condition: Improved Discharge: Home Discharge Instructions Home Meds Active Scripts Zolpidem Tartrate (ZOLPIDEM TARTRATE) 10 Mg Tablet, 0.5 TAB PO QHS, #14 TAB Take half to one tab at night as needed. Prov:TRAVON LOPEZ MD 11/15/17 Losartan Potassium (LOSARTAN POTASSIUM) 100 Mg Tablet, 100 MG PO DAILY, #90 TAB 3 Refills Prov:TRAVON LOPEZ MD 10/26/17 Levothyroxine Sodium (LEVOTHYROXINE SODIUM) 0.125 Mg Tab, 1 TAB PO QDAY, #45 TAB 0 Refills Prov:TRAVON LOPEZ MD 10/12/17 Insulin Glargine,Hum.rec.anlog (Basaglar Kwikpen U-100) 100 Unit/Ml (3 Ml) Insuln.pen, 60 UNITS SUBQ DAILY, #2 BOX 7 Refills Prov:TRAVON LOPEZ MD 10/01/17 Pen Needle, Diabetic, Safety (PEN NEEDLE) 1 Each Dis.needle, BOX MC DIRECTED , #1 1 Refill use to inject Bydureon weekly Prov:TRAVON LOPEZ MD 08/15/17 Omeprazole (OMEPRAZOLE) 20 Mg Tablet.dr, 20 MG PO DAILY, #90 TAB 3 Refills Prov:TRAVON LOPEZ MD 08/15/17 Reported Medications Gabapentin (GABAPENTIN) 600 Mg Tablet, 600 MG PO QDAY 11/19/17 Aspirin (ASPIRIN) 81 Mg Tab.chew, 81 MG PO DAILY, TAB.CHEW 07/25/17 Triamterene/Hydrochlorothiazid (DYAZIDE 37.5-25 CAPSULE) 1 Each Capsule, 1 CAP PO DAILY, CAPSULE 07/25/17 Discontinued Reported Medications Gabapentin (GABAPENTIN) 600 Mg Tablet, 600 MG PO DAILY, TAB 08/15/17 Discontinued Scripts Exenatide Microspheres (Bydureon Pen) 2 Mg/0.65 Ml Pen.injctr, 2 MG SC Q7DAY, # 4 CART 11 Refills Prov:TRAVON LOPEZ MD 08/15/17 Zolpidem Tartrate (AMBIEN CR) 6.25 Mg Tab.mphase, 1 TAB PO QODAY, #14 TAB 5 Refills Prov:TRAVON LOPEZ MD 10/26/17 Diet: Diabetic Special Instructions: Restart Lantus when glucoses are consistently > 150, then restart at 20 because of the prolonged affect of Exenatide. Will have her increase by 20 when glucoses are consistently >150. Check blood sugars multiple times a day. Keep a log and bring to your next appointment. Check a blood sugar if you feel sweaty. Get an exercise nuclear stress test as an outpatient. Follow up with PCP as scheduled. BMP/Mg in 2-3 days. Copies to: TRAVON LOPEZ MD Venous Thromboembolism Antithrombotics Is Pt On Any Antithrombotics?: Yes (Aspirin daily. ) Problem Qualifiers (1) Obesity: Body mass index: BMI 33.0-33.9 MARTIN ZAMBRANO MD Nov 20, 2017 14:35
[2017-11-20] MEDS ORDERED: GABA-549 PO (15:11)
[2017-11-21] MEDS ORDERED: INFLUENZA VIRUS VAC 0.5 ML SYR IM ONLY ONE (09:00)
== END 2017-11-20 15:20 | disposition home or self-care (01) ==
LOC: ER 10:55 → INTOOBSV 14:16 → MED 14:16
PROVIDERS: ADMIT Internal Medicine; ATTEND Internal Medicine
DX: E83.42 Hypomagnesemia (principal); R55 Syncope and collapse; R53.83 Other fatigue; I10 Essential (primary) hypertension; E03.9 Hypothyroidism, unspecified; K21.9 Gastro-esophageal reflux disease without esophagitis; E78.5 Hyperlipidemia, unspecified; R60.0 Localized edema; E66.9 Obesity, unspecified; E11.22 Type 2 diabetes mellitus with diabetic chronic kidney disease; I12.9 Hypertensive chronic kidney disease with stage 1 through stage 4 chronic kidney disease, or unspecified chronic kidney disease; N18.3 Chronic kidney disease, stage 3 (moderate)
CPT/HCPCS: 36415; 36416; 70450; 71045; 81001; 82948; 83735; 84443; 84484; 85025; 85651; 86140; 87040; 87081; 87502; 87880; 93005; 96361; 96365; 99285; A9270; G0378; J1815; J3475; J7030; J7040; 82040; 82247; 82310; 82374; 82435; 82565; 82947; 84075; 84132; 84155; 84295; 84450; 84460; 84520; J3490

== ENCOUNTER → 2017-11-22 | Outpatient (CLI) | payer MEDICARE, OTHER ==
[2017-11-20 12:23] VITALS: BMI 33.1
[~2017-11-22] MED LIST changes: +GABA-549 PO; +MAGN400T36 PO; +MULT-820 PO; +RAME8TAB43 PO
== END ==
LOC: LAB 09:18
PROVIDERS: ATTEND Emergency Medicine
DX: E11.65 Type 2 diabetes mellitus with hyperglycemia (principal); E03.9 Hypothyroidism, unspecified; Z79.4 Long term (current) use of insulin
CPT/HCPCS: 36415; 82310; 82374; 82435; 82465; 82565; 82947; 83036; 83718; 83735; 84132; 84295; 84443; 84478; 84520

== ENCOUNTER → 2017-11-22 | Outpatient (CLI) | payer MEDICARE, OTHER ==
[2017-11-20 12:23] VITALS: BMI 33.1
[~2017-11-22] MED LIST changes: -MAGN400T36 PO; -MULT-820 PO; -RAME8TAB43 PO
== END ==
LOC: LAB 09:06
PROVIDERS: ATTEND Internal Medicine
DX: N18.9 Chronic kidney disease, unspecified (principal); E83.42 Hypomagnesemia
CPT/HCPCS: 36415; 82310; 82374; 82435; 82565; 82947; 83735; 84132; 84295; 84520

== ENCOUNTER → 2017-11-27 | Outpatient (CLI) | payer MEDICARE, OTHER ==
[2017-11-20 12:23] VITALS: BMI 33.1
[~2017-11-27] MED LIST changes: +MAGN400T36 PO; +MULT-820 PO; +RAME8TAB43 PO; +ZALE10CA95 PO
--- NOTE | 2017-11-27 14:59 | RADIOLOGY IMAGING REPORT ---
FACILITY: [facility] [place] PATIENT NAME: Maribel So : 1945 MR: [id number] V: [id number] EXAM DATE: ORDERING PHYSICIAN: TRAVON BUSBY TECHNOLOGIST: Location: [facility] Patient: Maribel So : 1945 Visit/Account:[id number] Date of Sevice: 11/27/2017 Renal ultrasound INDICATION: Recent UTI COMPARISON: 08/29/2017 FINDINGS: The right kidney measures 9.6 x 3.8 x 4.7 cm. The left kidney measures 9.2 x 5.4 x 4.4 cm . Renal echogenicity is normal. No hydronephrosis or mass. No apparent bladder abnormality. 2.5 mm post void bladder volume. Bilateral ureteral jets noted. The visible IVC and aorta are normal. IMPRESSION: Normal renal ultrasound. Report Dictated By: Tyler Apipah MD at 11/27/2017 2:52 PM Report E-Signed By: Tyler Appiah MD at 11/27/2017 2:53 PM WSN:[id number]
== END ==
LOC: US 02:19
PROVIDERS: ATTEND Emergency Medicine
DX: R07.9 Chest pain, unspecified (principal); N18.3 Chronic kidney disease, stage 3 (moderate)
CPT/HCPCS: 76705

== ENCOUNTER → 2017-12-12 | Outpatient (CLI) | payer MEDICARE, OTHER ==
[2017-11-20 12:23] VITALS: BMI 33.1
[~2017-12-12] MED LIST changes: +ATOR40TA69 PO; +METO-233 PO
--- NOTE | 2017-12-12 15:30 | RADIOLOGY IMAGING REPORT ---
FACILITY: [facility] PATIENT NAME: Maribel So : 1945 MR: [id number] V: [id number] EXAM DATE: ORDERING PHYSICIAN: TRAVON BUSBY TECHNOLOGIST: Location: [facility] Patient: Maribel So : 1945 Visit/Account:[id number] Date of Sevice: 12/12/2017 EXAMINATION: Single Isotope SPECT Imaging with Exercise and Gated SPECT Imaging DATE OF EXAMINATION: December 12, 2017 DATE OF INTERPRETATION: December 12, 2017 REQUESTING PHYSICIAN: TRAVON BUSBY INDICATION: The patient is a 72-year-old female evaluated for chest pain. PROCEDURE: After informed consent the patient received an intravenous injection of 12.2 mCi of Tc-9 9m sestamibi followed at the appropriate time interval by rest imaging. The patient then exercised a ccording to the standard [place] protocol for 5 minutes achieving 6.8 METS. Resting heart rate was 65 bpm with a peak heart rate of 136 bpm which is 91 % of maximal predicted heart rate for age. Blood pressure at rest was 138 / 76; blood pressure during exercise was 171 / 76. There was no chest pain during exercise. Exercise was discontinued because of fatigue. Baseline EKG demonstrates normal sin us rhythm. There were no EKG changes of ischemia at peak exercise. Approximately one minute and 30 seconds prior to the termination of exercise, the patient received an intravenous injection of 29.2 m Ci of Tc-99m sestamibi followed by stress imaging. RAW DATA: Examination of the summed raw data revealed a good quality study. MYOCARDIAL PERFUSION: The tomographic images demonstrate a moderate decrease in myocardial perfusion tracer uptake in the basal to mid inferolateral wall seen on stress imaging not appreciated on rest imaging. GATED IMAGES: The gated images demonstrate an ejection fraction 66% with inferolateral hypokinesis IMPRESSION: 1. Abnormal myocardial perfusion scan with a reversible defect in the basal to mid inferolateral wal l of moderate intensity likely representing ischemia 2. Abnormal myocardial perfusion scan. 3. Normal LV systolic function; LVEF 66%. 4. Based on the results of this exam, the patient appears to be at intermediate risk for future cardi ovascular events. Report Dictated By: Sheryl Cole at 12/12/2017 3:24 PM Report E-Signed By: Sheryl Cole at 12/12/2017 3:26 PM WSN:[id number]
== END ==
LOC: RESP 00:50
PROVIDERS: ATTEND Emergency Medicine
DX: R94.39 Abnormal result of other cardiovascular function study (principal)
CPT/HCPCS: 78452; 93017; A9500

== ENCOUNTER → 2017-12-13 | Outpatient (CLI) | payer MEDICARE, OTHER ==
[2017-11-20 12:23] VITALS: BMI 33.1
[2017-12-13 11:08] LABS: PLATELET COUNT, AUTOMATED 195 K/uL (150-450)
--- NOTE | 2017-12-13 11:32 | EKG ---
FACILITY: [facility] PATIENT NAME: MARISABEL CHINCHILLA : [id number] MR: [id number] V: [id number] EXAM DATE: ORDERING PHYSICIAN: TRAVON BUSBY TECHNOLOGIST: RAUL GARSIA Test Reason : ABNORMAL STRESS TEST Blood Pressure : / mmHG Vent. Rate : 075 BPM Atrial Rate : 075 BPM P-R Int : 208 ms QRS Dur : 086 ms QT Int : 418 ms P-R-T Axes : 082 -53 058 degrees QTc Int : 466 ms Normal sinus rhythm Left axis deviation Inferior infarct , age undetermined Anteroseptal infarct , age undetermined Abnormal ECG No previous ECGs available Confirmed by TRAVON BUSBY ([id number]) on 12/14/2017 9:46:41 AM Referred By: Confirmed By:TRAVON BUSBY
== END ==
LOC: LAB 10:48
PROVIDERS: ATTEND Emergency Medicine
DX: R94.31 Abnormal electrocardiogram [ECG] [EKG] (principal); R94.39 Abnormal result of other cardiovascular function study
CPT/HCPCS: 36415; 82040; 82247; 82310; 82374; 82435; 82565; 82947; 84075; 84132; 84155; 84295; 84450; 84460; 84484; 84520; 85025

== ENCOUNTER → 2018-01-14 | Outpatient (REF) | payer MEDICARE, OTHER ==
[2017-11-20 12:23] VITALS: BMI 33.1
== END ==
LOC: ZZSENDIN 12:24
PROVIDERS: ATTEND Surgery
DX: I48.91 Unspecified atrial fibrillation (principal)
CPT/HCPCS: 82310; 82374; 82435; 82565; 82947; 84132; 84295; 84520; 85027

== ENCOUNTER → 2018-02-05 | Outpatient (CLI) | payer MEDICARE, OTHER ==
[2017-11-20 12:23] VITALS: BMI 33.1
[~2018-02-05] MED LIST changes: +ESOM40CA42 PO; +METO25TA93 PO; +WARF5TAB23 PO
[2018-02-05 10:28] LABS: PLATELET COUNT, AUTOMATED 211 K/uL (150-450)
== END ==
LOC: LAB 10:05
PROVIDERS: ATTEND Emergency Medicine
DX: E03.9 Hypothyroidism, unspecified (principal); E11.9 Type 2 diabetes mellitus without complications; Z79.4 Long term (current) use of insulin; I25.10 Atherosclerotic heart disease of native coronary artery without angina pectoris
CPT/HCPCS: 36415; 82310; 82374; 82435; 82465; 82565; 82947; 83036; 83718; 84132; 84295; 84443; 84478; 84520; 85025

== ENCOUNTER → 2018-02-11 | Outpatient (CLI) | payer MEDICARE, OTHER ==
[2017-11-20 12:23] VITALS: BMI 33.1
[2018-02-11 09:46] LABS: INR 1.45
== END ==
LOC: LAB 09:16
PROVIDERS: ATTEND Internal Medicine
DX: Z51.81 Encounter for therapeutic drug level monitoring (principal); Z79.01 Long term (current) use of anticoagulants; Z95.1 Presence of aortocoronary bypass graft; I48.91 Unspecified atrial fibrillation
CPT/HCPCS: 36415; 85610

== ENCOUNTER → 2018-02-18 | Outpatient (CLI) | payer MEDICARE, OTHER ==
[2017-11-20 12:23] VITALS: BMI 33.1
[2018-02-18 10:14] LABS: INR 1.75
== END ==
LOC: LAB 09:31
PROVIDERS: ATTEND Internal Medicine
DX: Z51.81 Encounter for therapeutic drug level monitoring (principal); I48.91 Unspecified atrial fibrillation; Z79.01 Long term (current) use of anticoagulants; Z95.1 Presence of aortocoronary bypass graft
CPT/HCPCS: 36415; 85610

== ENCOUNTER → 2018-02-21 | Outpatient (CLI) | payer MEDICARE, OTHER ==
[2017-11-20 12:23] VITALS: BMI 33.1
== END ==
LOC: LAB 08:53
PROVIDERS: ATTEND Internal Medicine
DX: I25.118 Atherosclerotic heart disease of native coronary artery with other forms of angina pectoris (principal); Z95.1 Presence of aortocoronary bypass graft
CPT/HCPCS: 36415; 82040; 82247; 82310; 82374; 82435; 82465; 82565; 82947; 83718; 84075; 84132; 84155; 84295; 84450; 84460; 84478; 84520

== ENCOUNTER → 2018-02-25 | Outpatient (CLI) | payer MEDICARE, OTHER ==
[2017-11-20 12:23] VITALS: BMI 33.1
[2018-02-25 12:49] LABS: INR 1.92
== END ==
LOC: LAB 12:17
PROVIDERS: ATTEND Internal Medicine
DX: Z51.81 Encounter for therapeutic drug level monitoring (principal); Z79.01 Long term (current) use of anticoagulants; I48.91 Unspecified atrial fibrillation; Z95.1 Presence of aortocoronary bypass graft
CPT/HCPCS: 36415; 85610

== ENCOUNTER → 2018-03-05 | Outpatient (CLI) | payer MEDICARE, OTHER ==
[2017-11-20 12:23] VITALS: BMI 33.1
== END ==
LOC: LAB 12:29
PROVIDERS: ATTEND Internal Medicine
DX: I25.811 Atherosclerosis of native coronary artery of transplanted heart without angina pectoris (principal); Z95.1 Presence of aortocoronary bypass graft
CPT/HCPCS: 36415; 82040; 82247; 82310; 82374; 82435; 82465; 82565; 82947; 83718; 84075; 84132; 84155; 84295; 84450; 84460; 84478; 84520

== ENCOUNTER → 2018-03-11 | Outpatient (CLI) | payer MEDICARE, OTHER ==
[2017-11-20 12:23] VITALS: BMI 33.1
[2018-03-11 11:14] LABS: INR 1.57
== END ==
LOC: LAB 10:49
PROVIDERS: ATTEND Internal Medicine
DX: Z51.81 Encounter for therapeutic drug level monitoring (principal); Z79.01 Long term (current) use of anticoagulants; Z95.1 Presence of aortocoronary bypass graft; I48.91 Unspecified atrial fibrillation
CPT/HCPCS: 36415; 85610

== ENCOUNTER → 2018-03-21 | Outpatient (CLI) | payer MEDICARE, OTHER ==
[2017-11-20 12:23] VITALS: BMI 33.1
[~2018-03-21] MED LIST changes: -TRAZ-156 PO; +TRAZ50TA34 PO
[2018-03-21 11:00] LABS: INR 1.09
== END ==
LOC: LAB 10:14
PROVIDERS: ATTEND Internal Medicine
DX: Z51.81 Encounter for therapeutic drug level monitoring (principal); Z79.01 Long term (current) use of anticoagulants; I48.91 Unspecified atrial fibrillation; Z95.1 Presence of aortocoronary bypass graft
CPT/HCPCS: 36415; 85610

== ENCOUNTER → 2018-03-26 | Outpatient (CLI) | payer MEDICARE, OTHER ==
[2017-11-20 12:23] VITALS: BMI 33.1
[2018-03-26 10:22] LABS: INR 2.2
== END ==
LOC: LAB 10:01
PROVIDERS: ATTEND Internal Medicine
DX: Z51.81 Encounter for therapeutic drug level monitoring (principal); Z79.01 Long term (current) use of anticoagulants; I48.91 Unspecified atrial fibrillation; Z95.1 Presence of aortocoronary bypass graft
CPT/HCPCS: 36415; 85610

== ENCOUNTER → 2018-03-29 | Outpatient (REF) | payer MEDICARE, OTHER ==
[2017-11-20 12:23] VITALS: BMI 33.1
== END ==
LOC: ZZSENDIN 18:18
PROVIDERS: ATTEND Emergency Medicine
DX: R19.7 Diarrhea, unspecified (principal)
CPT/HCPCS: 87045; 87177; 87324; 87449; G0328; 82274

== ENCOUNTER → 2018-04-01 | Outpatient (CLI) | payer MEDICARE, OTHER ==
[2017-11-20 12:23] VITALS: BMI 33.1
[2018-04-01 12:09] LABS: INR 2.08
== END ==
LOC: LAB 11:24
PROVIDERS: ATTEND Internal Medicine
DX: Z51.81 Encounter for therapeutic drug level monitoring (principal); Z79.01 Long term (current) use of anticoagulants; I48.91 Unspecified atrial fibrillation; Z95.1 Presence of aortocoronary bypass graft
CPT/HCPCS: 36415; 85610

== ENCOUNTER → 2018-04-08 | Outpatient (CLI) | payer MEDICARE, OTHER ==
[2017-11-20 12:23] VITALS: BMI 33.1
[~2018-04-08] MED LIST changes: +LEVO-3 PO; +METF-411 PO
[2018-04-08 09:40] LABS: INR 2.56
== END ==
LOC: LAB 09:08
PROVIDERS: ATTEND Internal Medicine
DX: Z51.81 Encounter for therapeutic drug level monitoring (principal); Z79.01 Long term (current) use of anticoagulants; I48.91 Unspecified atrial fibrillation; Z95.1 Presence of aortocoronary bypass graft
CPT/HCPCS: 36415; 85610

== ENCOUNTER → 2018-04-22 | Outpatient (CLI) | payer MEDICARE, OTHER ==
[2017-11-20 12:23] VITALS: BMI 33.1
[2018-04-22 13:34] LABS: INR 2.32
== END ==
LOC: LAB 13:11
DX: Z51.81 Encounter for therapeutic drug level monitoring (principal); I48.91 Unspecified atrial fibrillation; Z79.01 Long term (current) use of anticoagulants; Z95.1 Presence of aortocoronary bypass graft
CPT/HCPCS: 36415; 85610

== ENCOUNTER 2018-05-15 10:00 | Outpatient (RCR) | payer MEDICARE, OTHER ==
[2017-11-20 12:23] VITALS: BMI 33.1
[2018-02-15 16:03] VITALS: BP_SYST 116; BP_SYST 118; BP_DIAS 60; BP_DIAS 64
--- NOTE | 2018-02-15 16:30 | CARDIAC REHAB PLAN OF CARE ---
Physician: Bradley Llanes MD Patient is being seen: Hollie Ashanti Medical Diagnosis: CABG x 4 Date of Initial Evaluation: 15 February 2018 INTERVENTIONS: SHORT TERM GOALS Short Term Goals Due Date: 03/17/18 Short Term Goals: Short term goals will be to increase exercise duration towards the recommended 150 minutes/week. She will start her exercise at a total of 30 minutes of exercise, composed of 15 minutes on the treadmill, 10 on the recumbent bike, and 5 on the elliptical with a HR range between 90-105. Her current goal is to maintain a MET level of at least 3 METs per exercise with an RPE between 3-4. By the end of the next month her goal will be to achieve an average MET level of at least 4 METs with a HR range between 95-110bpm and a total exercise duration of 45 minutes per exercise session. With strength training she will begin with 4lb weights. By the end of the next month it is our goal to have her using 5lb weights. Over the next month it is also our goal to educate the patient on her kidney condition and diabetic monitoring with exercise to increase her understanding of her overall health and wellbeing. This will help promote healthy behavior awareness and change. Short Term Goals Met: Short Term Goals Not Met Due To: SKILLED NURSING GOALS [facility] Goal Due Date: 04/17/18 Gas Fitter Helper Goals: senior living goals include reaching the recommended 150 minutes/ week of moderate continuous exercise. The patient should, by the end of the next two months, be averaging a HR between 95-110bpm and an RPE of at least 4. Her exercise MET goal will be to be achieving at least 4.5 METs on average. Another [facility] goal will be to encourage continued weight loss to help control and regulate her kidney and diabetes function. We will help educate her on the health topics as well as promote behavior change towards increasing a healthy diet and leisure time activity. The patient currently uses a fitness tracker to track her steps. She reports that regularly we achieves between 2-3 thousand steps per day. By the end of the next two months it is a goal to have her achieve 7,000 steps per day. Gas Fitter Helper Goals Met: Gas Fitter Helper Goals Not Met Due To: PATIENT'S GOALS Patient Goals Due Date: 03/17/18 Patient Goals: The patient would like to lose weight over the course of the program, with her ideal weight being 150lbs (signifying a 31# weight loss goal) . She would also like to increase her weight lifting ability to enhance muscular tone and strength.Lastly, her fitness goal is to achieve 10,000 steps per day on average . Patient Goals Met: Patient Goals Not Met Due To: Cardiac Rehabilitation Plan of Care Comment: The current patient comes to cardiac rehab with a history of CABG x 4, CKD (at least stage 3), IDDM, and a history of atrial fibrillation and SVT. Until now she has been primarily sedentary, but has recently began a walking program at home. Over the course of the next month it is our goal to set a precedent for a successful exercise program. We will monitor the patient using telemetry ECG, BP, HR, and SPO2 to ensure her safety while exercising. We will also use this information to develop and individualized exercise program that targets her individual health and behavioral goals. Education will be provided on both heart, diabetes, and renal disease to bias cutter helper her understanding of her medical conditions. We will provide positive reinforcement to make her exercise sessions enjoyable and help motivate her to exercise. We will involve the patient in goal setting and the exercise prescription to help instill autonomy in the decisions being made. Lastly, we will encourage leisure time activity through the use of a fitness tracker. We will ask that she records her steps taken on an average basis and gradually increase her steps as she continues through the program. ANNIE
[2018-02-18 13:16] VITALS: BP 112/58
[2018-02-18 13:17] VITALS: BP 98/60
[2018-02-20 13:42] VITALS: BP 128/60
[2018-02-20 13:43] VITALS: BP 118/68
[2018-02-22 13:03] VITALS: BP 116/58
[2018-02-22 13:04] VITALS: BP 106/60
[2018-02-25 12:51] VITALS: BP 114/60
[2018-02-25 12:52] VITALS: BP 116/62
[2018-02-27 12:48] VITALS: BP 128/60
[2018-02-27 12:49] VITALS: BP 114/60
[2018-03-04 13:21] VITALS: BP_SYST 110; BP_SYST 122; BP_DIAS 58; BP_DIAS 78
[2018-03-08 13:38] VITALS: BP 124/76
[2018-03-08 13:39] VITALS: BP 118/76
[2018-03-11 12:54] VITALS: BP 120/62
[2018-03-11 12:55] VITALS: BP 118/64
[2018-03-22 11:41] VITALS: BP 110/58
[2018-03-22 11:43] VITALS: BP 128/68
--- NOTE | 2018-03-25 12:23 | CARDIAC REHAB PLAN OF CARE ---
Physician: Gabi Lopez MD Patient is being seen: Ashanti Browne Medical Diagnosis: CABG x 4 Date of Initial Evaluation: 02/15/18 Date patient was last seen: 03/25/18 Number of treatments: 11 INTERVENTIONS: SHORT TERM GOALS Short Term Goals Due Date: 04/25/18 Short Term Goals: Over the next month it will be our goal to continue increasing intensity. Her HR range will increased to 100-120bpm as her new goal pending her BP response is normal. On the treadmill she will maintain her current speed fo ~2.2mph but aim to increase her incline up to 5.5% (currently 3.5%). She will also aim to increase her strength training weights up to 6lbs. Over the next month it is also our goal to educate the patient on her kidney condition and diabetic monitoring with exercise to increase her understanding of her overall health and wellbeing. This will help promote healthy behavior awareness and change. Short Term Goals Met: The patient has been able to meet all her prior mentioned exercise goals! She has been able to maintain around 45 minutes of exercise total, with a HR range between 95-110bpm and an improved MET level on average ( 3.5 on the treadmill and 3.8 on the bike. She has also improved her elliptical level to L3 and her weights for strength training from 4lbs to 5lbs. Short Term Goals Not Met Due To: All prior mentioned goals have been met. [facility] GOALS Railway Switchman Goal Due Date: 04/25/18 Skilled Nursing Goals: enologist goals include reaching the recommended 150 minutes/ week of moderate continuous exercise. The patient should, by the end of the next two months, be averaging a HR between 95-110bpm and an RPE of at least 4. Her exercise MET goal will be to be achieving at least 4.5 METs on average. Another [facility] goal will be to encourage continued weightloss to help control and regulate her kidney and diabetes function. We will help educate her on the health topics as well as promote behavior change towards increasing a healthy diet and leisure time activity. The patient currently uses a fitness tracker to track her steps. She reports that regularly we achieves between 2-3 thousand steps per day. By the end of the next two months it is a goal to have her achieve 7,000 steps per day. Skilled Nursing Goals Met: Skilled Nursing Goals Not Met Due To: PATIENT'S GOALS Patient Goals Due Date: 04/25/18 Patient Goals: The patient would like to lose weight over the course of the program, with her ideal weight being 150lbs (signifying a 31# weightloss goal) . She would also like to increase her weight lifting ability to enhance muscular tone and strength.Lastly, her fitness goal is to achieve 10,000 steps per day on average . Patient Goals Met: Unaware of any improvement made on personal goals. Patient Goals Not Met Due To: Unaware of any weight loss, increases in leisure time steps taken, or muscular tone but will follow up with patient prior to next session. Cardiac Rehabilitation Plan of Care Comment: Our goal for the next month will be to increase overall intensity with exercise and encourage the patient to push herself a little harder. We will continue to monitor the patient as we have in order to ensure hemodynamics maintain a safe level. We will use this information to help individualize her exercise program to her goals and capabilities. We will also be sure to check in with the patient more regularly about her personal goals to help develop a sense of autonomy and responsibility on her part. ANNIE
[2018-03-25 12:46] VITALS: BP 130/64
[2018-03-25 12:47] VITALS: BP 110/62
[2018-03-27 12:45] VITALS: BP 130/62
[2018-03-27 12:46] VITALS: BP 120/60
[2018-04-01 16:33] VITALS: BP_SYST 120; BP_SYST 124; BP_DIAS 78
[2018-04-03 13:45] VITALS: BP 126/72
[2018-04-03 13:46] VITALS: BP 112/70
[2018-04-05 12:55] VITALS: BP 128/74
[2018-04-05 12:56] VITALS: BP 124/68
[2018-04-08 12:45] VITALS: BP_SYST 122; BP_SYST 130; BP_DIAS 70; BP_DIAS 72
[2018-04-10 12:51] VITALS: BP 138/76
[2018-04-10 12:52] VITALS: BP 110/64
[2018-04-10 15:13] VITALS: BP 110/62
[2018-04-10 15:14] VITALS: BP 118/68
[2018-04-12 13:53] VITALS: BP 124/78
[2018-04-12 13:54] VITALS: BP 130/68
[2018-04-15 12:58] VITALS: BP 128/70
[2018-04-15 12:59] VITALS: BP 120/60
[2018-04-17 12:54] VITALS: BP_SYST 112; BP_SYST 130; BP_DIAS 68
[2018-04-19 12:42] VITALS: BP_SYST 130; BP_SYST 132; BP_DIAS 60; BP_DIAS 78
[2018-04-24 12:48] VITALS: BP 140/78
[2018-04-24 12:49] VITALS: BP 118/68
[2018-04-26 13:04] VITALS: BP 122/72
[2018-04-26 13:05] VITALS: BP 110/62
[2018-04-29 13:35] VITALS: BP 118/64
[2018-04-29 13:36] VITALS: BP 118/62
[2018-05-01 17:21] VITALS: BP 120/62
--- NOTE | 2018-05-02 12:36 | CARDIAC REHAB PLAN OF CARE ---
Physician: Gabi Lopez Patient is being seen: BrowneAshanti hobbs Medical Diagnosis: CABG x 4 Date of Onset: 12/31/17 Date of Initial Evaluation: 02/15/18 Date patient was last seen: 05/01/18 Number of treatments: 25 INTERVENTIONS: SHORT TERM GOALS Short Term Goals Due Date: 06/02/18 Short Term Goals: Over the next month it will be our goal to continue increasing intensity. Her HR range will increased to 105-125bpm as her new goal pending her BP response is normal. On the treadmill she will maintain her current speed fo ~2.2mph but aim to increase her incline up to 8% (currently 5%). Our primary goal will be to attain a MET level of 4.2 by the end of her sessions here.She will also aim to increase her strength training weights up to 7lbs. Over the next month it is also our goal to educate the patient on her kidney condition and diabetic monitoring with exercise to increase her understanding of her overall health and wellbeing. This will help promote healthy behavior awareness and change. Short Term Goals Met: Patient has been able to maintain her target HR range, on average achieving between 105-118bpm with acceptable BP responses. She achieved the goal of 5% on the treadmill for a total of 3.9 METs and performed at 3.4 METs on average on the bike. She has increased her weight to 6lbs for strength training exercises. Short Term Goals Not Met Due To: All previous goals have been met. LONGTERM GOALS Intermediate Goal Due Date: 06/02/18 Intermediate Goals: rent collector goals include continuing the recommended 150 minutes/week of moderate continuous exercise. The patient should, by the end of the program be averaging a HR between 105-125bpm and an RPE of at least 4. Her exercise MET goal will be to be achieving at least 4.2 METs on average. Another care home goal will be to encourage continued weight loss to help control and regulate her kidney and diabetes function. We will help educate her on the health topics as well as promote behavior change towards increasing a healthy diet and leisure time activity. The patient currently uses a fitness tracker to track her steps. She reports that regularly we achieves between 2-3 thousand steps per day. By the end of the next two months it is a goal to have her achieve 7,000 steps per day. Intermediate Goals Met: She has successfully reached on average 150min/week of aerobic exercise simply by her 3 days of cardiac rehabilitation--not including any exercise at home. She has been able to maintain her HR goals. She also has been reporting RPEs of 3-4 on average. Intermediate Goals Not Met Due To: Patient stopped wearing her FitBit so we are unaware of steps being taken throughout the day. We are also unsure of any weight loss but will follow up with the patient on this information. She has not achieved a MET level of 4.5 but it will be our goal that prior to her graduation to achieve 4.2 METs on average. PATIENT'S GOALS Patient Goals Due Date: 06/02/18 Patient Goals: The patient would like to lose weight over the course of the program, with her ideal weight being 150lbs (signifying a 31# weight loss goal). She would also like to increase her weight lifting ability to enhance muscular tone and strength.Lastly, her fitness goal is to achieve 10,000 steps per day on average . Patient Goals Met: Unaware of any progress on patient goals Patient Goals Not Met Due To: We will follow up with the patient with specific questions pertaining to weight loss musculature, and daily step count. Cardiac Rehabilitation Plan of Care Comment: Over the next month it will be our plan to continue providing encouragement and social support for the patient and her goals. She has see great progress and enjoys her time here so now it is our primary concern to make sure these behavior changes stick with her following her graduation from the program. We will continue to monitor her vitals during her exercise sessions and help create a exercise prescription for her exiting the program. ANNIE
--- NOTE | 2018-05-02 13:04 | CARDIAC REHAB PLAN OF CARE ---
Physician: Gabi Lopez MD Patient is being seen: Ashanti Browne Medical Diagnosis: CABG x 4 Date of Onset: 12/31/17 Date of Initial Evaluation: 02/15/18 Date patient was last seen: 05/01/18 Number of treatments: 25 INTERVENTIONS: SHORT TERM GOALS Short Term Goals Due Date: 06/02/18 Short Term Goals: Over the next month it will be our goal to continue increasing intensity. Her HR range will increased to 105-125bpm as her new goal pending her BP response is normal. On the treadmill she will maintain her current speed fo ~2.2mph but aim to increase her incline up to 8% (currently 5%). Our primary goal will be to attain a MET level of 4.2 by the end of her sessions here.She will also aim to increase her strength training weights up to 7lbs. Over the next month it is also our goal to educate the patient on her kidney condition and diabetic monitoring with exercise to increase her understanding of her overall health and wellbeing. This will help promote healthy behavior awareness and change. Short Term Goals Met: Patient has been able to maintain her target HR range, on average achieving between 105-118bpm with acceptable BP responses. She achieved the goal of 5% on the treadmill for a total of 3.9 METs and performed at 3.4 METs on average on the bike. She has increased her weight to 6lbs for strength training exercises. Short Term Goals Not Met Due To: All previous goals have been met. SENIOR CARE GOALS Group Home Goal Due Date: 06/02/18 Group Home Goals: exterminator goals include continuing the recommended 150 minutes/week of moderate continuous exercise. The patient should, by the end of the program be averaging a HR between 105-125bpm and an RPE of at least 4. Her exercise MET goal will be to be achieving at least 4.2 METs on average. Another [facility] goal will be to encourage continued weight loss to help control and regulate her kidney and diabetes function. We will help educate her on the health topics as well as promote behavior change towards increasing a healthy diet and leisure time activity. The patient currently uses a fitness tracker to track her steps. She reports that regularly we achieves between 2-3 thousand steps per day. By the end of the next two months it is a goal to have her achieve 7,000 steps per day. Group Home Goals Met: She has successfully reached on average 150min/week of aerobic exercise simply by her 3 days of cardiac rehabilitation--not including any exercise at home. She has been able to maintain her HR goals. She also has been reporting RPEs of 3-4 on average. Group Home Goals Not Met Due To: Patient stopped wearing her FitBit so we are unaware of steps being taken throughout the day. We are also unsure of any weight loss but will follow up with the patient on this information. She has not achieved a MET level of 4.5 but it will be our goal that prior to her graduation to achieve 4.2 METs on average. PATIENT'S GOALS Patient Goals Due Date: 06/02/18 Patient Goals: The patient would like to lose weight over the course of the program, with her ideal weight being 150lbs (signifying a 31# weight loss goal). She would also like to increase her weight lifting ability to enhance muscular tone and strength.Lastly, her fitness goal is to achieve 10,000 steps per day on average . Patient Goals Met: Unaware of any progress on patient goals Patient Goals Not Met Due To: We will follow up with the patient with specific questions pertaining to weight loss, musculature, and daily step count. Cardiac Rehabilitation Plan of Care Comment: Over the next month it will be our plan to continue providing encouragement and social support for the patient and her goals. She has see great progress and enjoys her time here so now it is our primary concern to make sure these behavior changes stick with her following her graduation from the program. We will continue to monitor her vitals during her exercise sessions and help create a exercise prescription for her exiting the program. ANNIE
[2018-05-03 12:49] VITALS: BP 122/72
[2018-05-03 12:51] VITALS: BP 112/60
[2018-05-08 16:25] VITALS: BP_SYST 112; BP_SYST 122; BP_DIAS 64; BP_DIAS 70
[2018-05-13 13:35] VITALS: BP 140/68
[2018-05-13 13:36] VITALS: BP 118/70
[~2018-05-15 10:00] MED LIST changes: +AMLO-111 PO; -AMLO-96 PO; -LOSA100T67 PO; +LOSA100T69 PO; -METF-411 PO; +METF-450 PO
[2018-05-15 13:38] VITALS: BP 108/70
[2018-05-15 13:39] VITALS: BP 112/70
== END 2018-05-16 ==
LOC: CARD 10:00
PROVIDERS: ATTEND Emergency Medicine
DX: I25.118 Atherosclerotic heart disease of native coronary artery with other forms of angina pectoris (principal); I25.810 Atherosclerosis of coronary artery bypass graft(s) without angina pectoris; Z95.1 Presence of aortocoronary bypass graft; I12.9 Hypertensive chronic kidney disease with stage 1 through stage 4 chronic kidney disease, or unspecified chronic kidney disease; E11.9 Type 2 diabetes mellitus without complications; N18.3 Chronic kidney disease, stage 3 (moderate)
CPT/HCPCS: 93798

== ENCOUNTER → 2018-05-27 | Outpatient (CLI) | payer MEDICARE, OTHER ==
[2017-11-20 12:23] VITALS: BMI 33.1
[2018-05-27 11:35] LABS: INR 1.78
== END ==
LOC: LAB 11:13
PROVIDERS: ATTEND Internal Medicine
DX: I48.91 Unspecified atrial fibrillation (principal); Z51.81 Encounter for therapeutic drug level monitoring; Z79.01 Long term (current) use of anticoagulants; Z95.1 Presence of aortocoronary bypass graft
CPT/HCPCS: 36415; 85610

== ENCOUNTER → 2018-05-30 | Outpatient (CLI) | payer MEDICARE, OTHER ==
[2017-11-20 12:23] VITALS: BMI 33.1
[~2018-05-30] MED LIST changes: +LEVO75TA73 PO
== END ==
LOC: LAB 09:16
PROVIDERS: ATTEND Emergency Medicine
DX: E03.9 Hypothyroidism, unspecified (principal)
CPT/HCPCS: 36415; 84443

== ENCOUNTER 2018-06-07 10:00 | Outpatient (RCR) | payer MEDICARE, OTHER ==
[2017-11-20 12:23] VITALS: BMI 33.1
[2018-05-24 16:55] VITALS: BP 108/64
[2018-05-24 16:56] VITALS: BP 116/68
[2018-05-27 13:39] VITALS: BP 110/62
[2018-05-27 13:40] VITALS: BP 108/68
[2018-05-29 13:41] VITALS: BP 116/62
[2018-05-29 13:45] VITALS: BP 112/62
[2018-05-31 12:56] VITALS: BP_SYST 102; BP_SYST 126; BP_DIAS 64; BP_DIAS 66
[2018-06-03 12:50] VITALS: BP 126/80
[2018-06-03 12:51] VITALS: BP 116/62
[2018-06-05 13:02] VITALS: BP 136/68
[2018-06-05 13:03] VITALS: BP 102/62
[2018-06-07 16:45] VITALS: BP 126/70
[2018-06-07 16:46] VITALS: BP 112/72
[2018-06-11] MEDS ORDERED: GABA-503 PO ×2 (13:10→15:34)
== END 2018-06-07 18:00 | disposition home or self-care (01) ==
LOC: CARD 10:00
PROVIDERS: ATTEND Emergency Medicine
DX: I25.118 Atherosclerotic heart disease of native coronary artery with other forms of angina pectoris (principal); I25.810 Atherosclerosis of coronary artery bypass graft(s) without angina pectoris; Z95.1 Presence of aortocoronary bypass graft; I12.9 Hypertensive chronic kidney disease with stage 1 through stage 4 chronic kidney disease, or unspecified chronic kidney disease; E11.9 Type 2 diabetes mellitus without complications; N18.3 Chronic kidney disease, stage 3 (moderate)
CPT/HCPCS: 93798

== ENCOUNTER → 2018-06-12 | Outpatient (CLI) | payer MEDICARE, OTHER ==
[2017-11-20 12:23] VITALS: BMI 33.1
[2018-06-12 09:41] LABS: INR 1.91
== END ==
LOC: LAB 09:08
PROVIDERS: ATTEND Internal Medicine
DX: Z51.81 Encounter for therapeutic drug level monitoring (principal); Z79.01 Long term (current) use of anticoagulants; Z95.1 Presence of aortocoronary bypass graft; I48.91 Unspecified atrial fibrillation
CPT/HCPCS: 36415; 85610

== ENCOUNTER → 2018-06-19 | Outpatient (CLI) | payer MEDICARE, OTHER ==
[2017-11-20 12:23] VITALS: BMI 33.1
[2018-06-19 11:27] LABS: INR 1.79
== END ==
LOC: LAB 10:54
PROVIDERS: ATTEND Internal Medicine
DX: Z51.81 Encounter for therapeutic drug level monitoring (principal); I48.91 Unspecified atrial fibrillation; Z79.01 Long term (current) use of anticoagulants; Z95.1 Presence of aortocoronary bypass graft
CPT/HCPCS: 36415; 85610

== ENCOUNTER → 2018-06-24 | Outpatient (CLI) | payer MEDICARE, OTHER ==
[2017-11-20 12:23] VITALS: BMI 33.1
[~2018-06-24] MED LIST changes: +FLU180SY11 IM; +TRAM-420 PO
--- NOTE | 2018-06-24 13:47 | RADIOLOGY IMAGING REPORT ---
FACILITY: [facility] [place] PATIENT NAME: Maribel So : 1945 MR: [id number] V: [id number] EXAM DATE: ORDERING PHYSICIAN: TRAVON BUSBY TECHNOLOGIST: Location: [facility] Patient: Maribel So : 1945 Visit/Account:[id number] Date of Sevice: 06/24/2018 Exam type: HIP LEFT History: Left hip pain Comparison: None. Findings: Two views the left hip demonstrates mild to moderate changes of the left hip joint. There is no evid ence of acute fracture or dislocation. Surgical clips are seen in the left elbow region. Instantly noted are mild to moderate joint changes of the right hip joint is well IMPRESSION: 1. Mild to moderate degenerative changes of the left hip joint although no evidence of acute fractur e or dislocation seen Report Dictated By: Paola Gonzalez MD at 06/24/2018 1:41 PM Report E-Signed By: Paola Gonzalez MD at 06/24/2018 1:43 PM WSN:[email or web address]
== END ==
LOC: RAD 11:54
PROVIDERS: ATTEND Emergency Medicine
DX: M16.12 Unilateral primary osteoarthritis, left hip (principal)

== ENCOUNTER → 2018-06-24 | Outpatient (CLI) | payer MEDICARE, OTHER ==
[2017-11-20 12:23] VITALS: BMI 33.1
[2018-06-24 13:17] LABS: INR 1.76
== END ==
LOC: LAB 12:35
PROVIDERS: ATTEND Internal Medicine
DX: Z51.81 Encounter for therapeutic drug level monitoring (principal); Z95.1 Presence of aortocoronary bypass graft; Z79.01 Long term (current) use of anticoagulants; I48.91 Unspecified atrial fibrillation
CPT/HCPCS: 36415; 85610

== ENCOUNTER → 2018-06-27 | Outpatient (CLI) | payer MEDICARE, OTHER ==
[2017-11-20 12:23] VITALS: BMI 33.1
[2018-06-27 12:13] LABS: INR 4.66
== END ==
LOC: LAB 11:43
PROVIDERS: ATTEND Internal Medicine
DX: I48.91 Unspecified atrial fibrillation (principal); Z51.81 Encounter for therapeutic drug level monitoring; Z79.01 Long term (current) use of anticoagulants; Z95.1 Presence of aortocoronary bypass graft
CPT/HCPCS: 36415; 85610

== ENCOUNTER → 2018-07-04 | Outpatient (CLI) | payer MEDICARE, OTHER ==
[2017-11-20 12:23] VITALS: BMI 33.1
[2018-07-04 10:57] LABS: INR 4.31
== END ==
LOC: LAB 10:39
PROVIDERS: ATTEND Internal Medicine
DX: Z51.81 Encounter for therapeutic drug level monitoring (principal); I48.91 Unspecified atrial fibrillation; Z95.1 Presence of aortocoronary bypass graft; Z79.01 Long term (current) use of anticoagulants
CPT/HCPCS: 36415; 85610

== ENCOUNTER → 2018-07-15 | Outpatient (CLI) | payer MEDICARE, OTHER ==
[2017-11-20 12:23] VITALS: BMI 33.1
[~2018-07-15] MED LIST changes: +MIRT-22 PO
== END ==
LOC: LAB 14:31
PROVIDERS: ATTEND Emergency Medicine
DX: E03.9 Hypothyroidism, unspecified (principal)
CPT/HCPCS: 36415; 84443

== ENCOUNTER 2018-07-19 09:00 | Outpatient (RCR) | payer MEDICARE, OTHER ==
[2017-11-20 12:23] VITALS: BMI 33.1
--- NOTE | 2018-06-28 15:05 | PT INITIAL EVALUATION ---
MEDICAL DIAGNOSIS: Arthritis of Left Hip TREATMENT DIAGNOSIS: Low Back Pain, Left Leg Pain DATE OF ONSET: 06/22/18 SUBJECTIVE: Maribel is 72 year old female presenting to physical therapy following recent onset of pain in her back and L hip that continues down to the front of her L knee. Pain has sometimes occurred before, but really started following prolonged driving last 06/22/18. Pain then became worse after driving more the following day and has remained high ever since. Maribel reports pain is currently rated as a 8/10 spanning from L5 to the anterior L knee, no symptoms on the R. Pt had an X ray of her L hip showing mild arthritis. Pain at it's worse gets to a 10/10 and is increased with prolonged sitting or lying supine. Pain gets better with walking or exercise. Pt is currently taking Tylenol for pain and will soon be taking Tramadol when rx is filled. Pt participates in a cardiac rehabilitation exercise class following recent CABG. REHAB PROBLEM LIST: Increased Pain Decreased ROM Decreased Function Decreased ADL's Decreased Mobility PREVIOUS MEDICAL HISTORY: See EMR OBJECTIVE: Posture: Pt has slight R lateral hip shift. ROM: Lumbar ROM: flexion: full no pain, ext: min-mod restrict with no pain, L SB: pn in L side of back slight full motion, R SB: larger pain on L side of back full motion. Palpation: Pt is tender to palpation from T5 down to the anterior L leg just above the knee. Special Tests: Thigh Thrust, Katty's & lateral hip compression (-) Mobility: Lumbar Repeated Motion Screen: Flexion: no change in location with increased intensity in the buttocks, Ext: pn centralized to in the buttocks only with increased intensity lateral to L5, Ext with L hip shift: no change in pain, Ext with R hip shift: pain centralized with increased intensity in lateral L5. ASSESSMENT: Maribel shows signs and symptoms consistent with lumbar posterior derangement with radiating symptoms down the L LE. Physical therapy is indicated to improve the above listed deficits to return pt to full function with ADL's and recreational activities. Short Term Goals In 3 weeks pt will centralize pain to the lumbar spine only for improved function with ADL's. In 6 weeks pt will decrease pain to <1-2/10 with ADLs for improved function. In 6 weeks pt will be able to sleep supine without pain for improved function with ADL's. Patient's Goals Decrease pain and improve function. PLAN: Patient to be seen for Manual Therapy/STM/MET Strengthening/condition Ice/Heat Range of Motion Spinal Stabilization Ultrasound Stretching Iontophoresis Neuromuscular Re-ed Closed Chain Program Electrical Stim Posture/Body mechanics Gait Trg/Balance Trg Biofeedback Home Exercise Program Mech./Manual Traction Therapeutic Activities Pelvic Floor 3x/Week for 6 Weeks If you have any questions, please contact me at . Thank you, Ora Laguna, PT, DPT, CLT MTDD
[~2018-07-19 09:00] MED LIST changes: -LOSA100T69 PO; +LOSA100T75 PO
[2018-08-01] MEDS ORDERED: PNEI IM (08:52)
[2018-08-01] MEDS ORDERED: TRAZ100T31 PO (08:56)
[2018-08-01] MEDS ORDERED: RANI-366 PO (09:01)
== END 2018-07-19 18:00 | disposition home or self-care (01) ==
LOC: PT 09:00
PROVIDERS: ATTEND Emergency Medicine
DX: M16.12 Unilateral primary osteoarthritis, left hip (principal); M54.5 Low back pain; M79.605 Pain in left leg
CPT/HCPCS: 97161

== ENCOUNTER → 2018-08-01 | Outpatient (CLI) | payer MEDICARE, OTHER ==
[2017-11-20 12:23] VITALS: BMI 33.1
[~2018-08-01] MED LIST changes: +LOSA100T69 PO; -LOSA100T75 PO; +PNEI IM; +RANI-366 PO; +TRAZ100T31 PO
[2018-08-01 09:17] LABS: PLATELET COUNT, AUTOMATED 171 K/uL (150-450)
== END ==
LOC: LAB 08:50
PROVIDERS: ATTEND Emergency Medicine
DX: I10 Essential (primary) hypertension (principal); E11.9 Type 2 diabetes mellitus without complications; R20.8 Other disturbances of skin sensation; N18.3 Chronic kidney disease, stage 3 (moderate)
CPT/HCPCS: 36415; 82306; 82310; 82374; 82435; 82565; 82607; 82947; 83036; 84132; 84295; 84520; 85025

== ENCOUNTER → 2018-09-04 | Outpatient (CLI) | payer MEDICARE, OTHER ==
[2017-11-20 12:23] VITALS: BMI 33.1
[~2018-09-04] MED LIST changes: -LOSA100T69 PO; +LOSA100T75 PO
--- NOTE | 2018-09-04 12:24 | RADIOLOGY IMAGING REPORT ---
FACILITY: [facility] PATIENT NAME: Maribel So : 1945 MR: [id number] V: [id number] EXAM DATE: ORDERING PHYSICIAN: STEFANY MEDRANO TECHNOLOGIST: Location: [facility] [place] Patient: Maribel So : 1945 Visit/Account:[id number] Date of Sevice: 09/04/2018 EXAMINATION: Left knee radiographs 3 views HISTORY: Fall, pain COMPARISON: None. FINDINGS: Frontal, oblique and lateral views obtained. Bones: Normal. Joint spaces: Normal. Alignment: Normal. Soft tissues: Tiny chronic ossification adjacent to the proximal fibula seen on the frontal view. Effusion: Equivocal small joint effusion. IMPRESSION: Equivocal small joint effusion. Otherwise unremarkable left radiographs. No fracture or malalignment. Report Dictated By: Tyler Appiah MD at 09/04/2018 12:17 PM Report E-Signed By: Tyler Appiah MD at 09/04/2018 12:19 PM WSN:[id number]
== END ==
LOC: RAD 11:41
PROVIDERS: ATTEND Nurse Practitioner Primary Care
DX: M25.462 Effusion, left knee (principal)
CPT/HCPCS: 73564

== ENCOUNTER → 2018-10-09 | Outpatient (CLI) | payer MEDICARE, OTHER ==
[2017-11-20 12:23] VITALS: BMI 33.1
[~2018-10-09] MED LIST changes: -AMLO-111 PO; +AMLO-125 PO; -GABA-503 PO; +GABA-533 PO
[2018-10-09 09:43] LABS: PLATELET COUNT, AUTOMATED 161 K/uL (150-450)
--- NOTE | 2018-10-09 09:45 | EKG ---
[place] [facility] [place] NAME: MARISABEL CHINCHILLA : [id number] MR: [id number] V: [id number] EXAM DATE: ORDERING PHYSICIAN: LIVIA JULIO TECHNOLOGIST: KINGSLEY Shepherd Reason : PREOP-RIGHT HAND Blood Pressure : / mmHG Vent. Rate : 057 BPM Atrial Rate : 057 BPM P-R Int : 212 ms QRS Dur : 094 ms QT Int : 468 ms P-R-T Axes : 014 -29 069 degrees QTc Int : 455 ms Sinus bradycardia with 1st degree AV block Anteroseptal infarct , age undetermined Compared to previous, no longer has evidence of an inferior infarct Confirmed by MARTIN ZAMBRANO ([id number]) on 10/09/2018 10:57:45 AM Referred By: Confirmed By:MARTIN ZAMBRANO
== END ==
LOC: LAB 09:28
PROVIDERS: ATTEND Anesthesiology
DX: Z01.812 Encounter for preprocedural laboratory examination (principal); Z01.810 Encounter for preprocedural cardiovascular examination; E11.9 Type 2 diabetes mellitus without complications; E03.9 Hypothyroidism, unspecified; G56.01 Carpal tunnel syndrome, right upper limb; R00.1 Bradycardia, unspecified; I44.0 Atrioventricular block, first degree
CPT/HCPCS: 36415; 82040; 82247; 82310; 82374; 82435; 82565; 82947; 83036; 84075; 84132; 84155; 84295; 84443; 84450; 84460; 84520; 85025; 93005

== ENCOUNTER → 2018-10-15 | Outpatient (CLI) | payer MEDICARE, OTHER ==
[2017-11-20 12:23] VITALS: BMI 33.1
--- NOTE | 2018-10-15 15:04 | RADIOLOGY IMAGING REPORT ---
FACILITY: [facility] - [place] PATIENT NAME: Maribel So : 1945 MR: [id number] V: [id number] EXAM DATE: ORDERING PHYSICIAN: TRAVON BUSBY TECHNOLOGIST: Location: [facility] Patient: Maribel So : 1945 Visit/Account:[id number] Date of Sevice: 10/15/2018 XR WRIST 2 VWS LT Indication: Left wrist pain on radial side Comparison: None. Findings: The trapezium is not well seen. There is narrowing of the first carpal metacarpal joint sp mary. The scaphoid and remaining carpal bones are intact. Distal radius and ulnar are normal. There is soft tissue swelling over the distal ulna. IMPRESSION: 1. No evidence of fracture. 2. The trapezium is not well seen. This may represent prior resection, or degenerative changes of t he first carpal metacarpal joint space. 3. Soft tissue swelling over the distal ulna. Report Dictated By: Balaji Cha at 10/15/2018 2:53 PM Report E-Signed By: Balaji Cha at 10/15/2018 2:58 PM [id number]
== END ==
LOC: LAB 14:12
PROVIDERS: ATTEND Emergency Medicine
DX: M19.032 Primary osteoarthritis, left wrist (principal)
CPT/HCPCS: 36415; 73100; 83630; 83735; 83993; 84302; 84999; 87045; 87177; 87493; G0328; 82274; 82310; 82374; 82435; 82565; 82947; 84132; 84295; 84520

== ENCOUNTER → 2018-10-23 | Outpatient (CLI) | payer MEDICARE, OTHER ==
[2017-11-20 12:23] VITALS: BMI 33.1
[~2018-10-23] MED LIST changes: +FERR325T24 PO
--- NOTE | 2018-10-23 16:28 | RADIOLOGY IMAGING REPORT ---
FACILITY: [facility] - [place] PATIENT NAME: Maribel So : 1945 MR: [id number] V: [id number] EXAM DATE: ORDERING PHYSICIAN: JON PEARL TECHNOLOGIST: Location: [facility] Patient: Maribel So : 1945 Visit/Account:[id number] Date of Sevice: 10/23/2018 KUB SINGLE VIEW ABDOMEN Given history: ABDOMINAL PAIN COMPARISON: None Bowel gas: Bowel gas pattern is within normal limits with scattered air through large and small cathy l. There is a 3 mm round calcification which projects over the left inferior medial renal shadow. ther e is also a 2 mm calcification projecting of the left psoas muscle in the general vicinity of the pro ximal left ureter. Several small round calcifications seen in the region of the right UVJ are probab ly phleboliths. Findings: None pertinent. IMPRESSION: Possible left-sided nephrolithiasis. Possible left-sided ureterolithiasis. Correlate with clinical presentation. Consider noncontrast CT if any concerns for ureteral nephrolithiasis. Bowel gas pattern within normal limits. Report Dictated By: Donnie Thompson MD at 10/23/2018 4:12 PM Report E-Signed By: Donnie Thompson MD at 10/23/2018 4:15 PM [id number]
== END ==
LOC: RAD 14:54
PROVIDERS: ATTEND Surgery
DX: R10.9 Unspecified abdominal pain (principal)
CPT/HCPCS: 74018

== ENCOUNTER 2018-11-05 01:05 | Day surgery (SDC) | payer MEDICARE, OTHER ==
[2017-11-20 12:23] VITALS: Ht 167.6 cm; Wt 75.3 kg
[~2018-11-05] VITALS: Ht 167.6 cm; Wt 75.3 kg
[2018-11-05] MEDS ORDERED: LIDOCAINE/SOD BICARB 8.4% SYR ID ONE (10:00)
[2018-11-05] MEDS ORDERED: NORMOSOL R SOLN(*) 1000 ML BAG 1,000 ML IV PRN (10:00)
[2018-11-05 11:47] VITALS: BP 155/96
[2018-11-05] MEDS ORDERED: PROPOFOL EMUL(*) 10MG/ML 20 ML 40 ML ONE (12:43)
[2018-11-05] MEDS ORDERED: LIDOCAINE MPF 1% 5 ML VIAL ONE (12:43)
[2018-11-05 13:39] VITALS: BP 114/66
--- NOTE | 2018-11-05 13:48 | Short(Outpt) Discharge Summary ---
Discharge Summary Reason for Hosp/Final Diag: (1) Diarrhea Hospital Course & Plan: 73 yo f presented for egd/colonoscopy. she tolerated the procedures well and there were no complications. path pending. she will be discharged home when criteria met. Departure Discharge to: Home Discharge Instructions Home Meds Active Scripts Esomeprazole Magnesium (NEXIUM) 40 Mg Capsule.dr, 1 CAP PO QDAY, #90 CAP Prov:TRAVON BUSBY MD 10/15/18 Trazodone Hcl (TRAZODONE HCL) 100 Mg Tablet, 100 MG PO QHS, #30 TAB 11 Refills Prov:TRAVON BUSBY MD 08/01/18 Levothyroxine Sodium (LEVOTHYROXINE SODIUM) 75 Mcg Tablet, 75 MCG PO QDAY, #90 TAB 3 Refills Prov:TRAVON BUSBY MD 07/15/18 Insulin Glargine,Hum.rec.anlog (Basaglar Kwikpen U-100) 100 Unit/Ml (3 Ml) Insuln.pen, 35 UNITS SUBQ DAILY, #2 BOX 3 Refills Prov:TRAVON BUSBY MD 06/12/18 Gabapentin (GABAPENTIN) 600 Mg Tablet, 600 MG PO QHS, #90 TAB 3 Refills Prov:TRAVON BUSBY MD 06/11/18 Metoprolol Tartrate (METOPROLOL TARTRATE) 25 Mg Tablet, 0.5 MG PO BID, #45 TAB 3 Refills Prov:TRAVON BUSBY MD 04/18/18 Gabapentin (GABAPENTIN) 300 Mg Capsule, 300 MG PO DAILY, #90 CAPSULE 3 Refills Prov:TRAVON BUSBY MD 02/14/18 Triamterene/Hydrochlorothiazid (DYAZIDE 37.5-25 CAPSULE) 1 Each Capsule, 1 CAP PO DAILY, #90 CAPSULE 3 Refills Prov:TRAVON BUSBY MD 02/14/18 Atorvastatin Calcium (ATORVASTATIN CALCIUM) 40 Mg Tablet, 1 TAB PO QDAY, #90 TAB 3 Refills Prov:TRAVON BUSBY MD 01/23/18 Pen Needle, Diabetic, Safety (PEN NEEDLE) 1 Each Dis.needle, EACH MC DIRECTED, #1 1 Refill use to inject Basaglar QHS Prov:TRAVON BUSBY MD 01/14/18 Magnesium Oxide (MAGNESIUM OXIDE) 400 Mg Tablet, 400 MG PO DAILY, #30 TAB 11 Refills Prov:TRAVON BUSBY MD 11/26/17 Reported Medications Ferrous Sulfate (IRON) 325 Mg Tablet, 325 MG PO 10/23/18 Metformin Hcl (METFORMIN HCL) Unknown Strength Tablet, 1000 MG PO DAILY, TAB 04/08/18 Aspirin (ASPIRIN) 81 Mg Tab.chew, 81 MG PO DAILY, TAB.CHEW 07/25/17 Diet: Regular Activity: As Tolerated Special Instructions: we will call you in 10 days with biopsy results. JON PEARL Nov 05, 2018 13:48
[2018-11-05 14:00] VITALS: BP 120/69
[2018-11-05 14:21] VITALS: BP 151/82
[2018-11-05 14:23] VITALS: BP 156/87
--- NOTE | 2018-11-05 16:04 | OPERATIVE REPORT 1 ---
EVENT DATE: November 05, 2018 SURGEON: Saravanan Kessler MD ANESTHESIOLOGIST: Kareem Alexander MD ANESTHESIA: MAC. WALL INSULATION SPRAYER: None. PREOPERATIVE DIAGNOSES 1. Diarrhea. 2. Gastroesophageal reflux disease. POSTOPERATIVE DIAGNOSES 1. Diarrhea. 2. Gastroesophageal reflux disease. PROCEDURES PERFORMED 1. Esophagogastroduodenoscopy. 2. Colonoscopy. Esophagogastroduodenoscopy documented with the software in the Gastroenterology Lab, and colonoscopy will be dictated here. FLUIDS IV crystalloid. ESTIMATED BLOOD LOSS Minimal. SPECIMENS 1. Terminal ileum. 2. Appendiceal orifice. 3. Colorectal random biopsies. COMPLICATIONS None. INDICATIONS This is a 73-year-old female with a many-year history of reflux. She also has chronic diarrhea, and the etiology is unknown. Risks and benefits of the procedure were explained. Consent was signed. DESCRIPTION OF PROCEDURE Patient was taken to the GI suite and placed in the supine position. MAC anesthesia was administered per the anesthesia team. Patient was placed in the left lateral position. EDG was performed and is documented on the software in the GI Lab. Attention was then turned to the colonoscopy. Anal exam and digital rectal exam were within normal limits. The colonoscope was advanced through the anus, through the colon, to the cecum. It was then advanced into the terminal ileum. Terminal ileum appeared normal. I did take a biopsy of the terminal ileum. Biopsy was taken of the appendiceal orifice. The mucosa around the appendiceal orifice was likely normal, but had a slight mucosa polypoid appearance to it, and that is why I biopsied it. The scope was slowly withdrawn. Random colon and rectal biopsies were taken during the withdrawal of the scope. The prep was good. The entire colon was examined during the withdrawal, as was the rectum. There were no polyps, masses, and no bleeding. Mucosa appeared healthy. Carbon dioxide was suctioned from the rectum. The colonoscope was withdrawn. Patient tolerated the procedure well. There were no complications. MTDD
== END 2018-11-05 14:40 | disposition home or self-care (01) ==
LOC: OR 01:05
PROVIDERS: ATTEND Surgery
DX: K29.70 Gastritis, unspecified, without bleeding (principal)
CPT/HCPCS: 00813; 36416; 43239; 45380; 82948; 87077; 88305; 88344; J2001; J2704

== ENCOUNTER 2018-11-11 09:00 | Outpatient (RCR) | payer MEDICARE, OTHER ==
[2017-11-20 12:23] VITALS: BMI 33.1
--- NOTE | 2018-10-07 14:58 | PT INITIAL EVALUATION ---
MEDICAL DIAGNOSIS: L knee pain and swelling, meniscus irritation TREATMENT DIAGNOSIS: same DATE OF ONSET: 08/27/18 SUBJECTIVE: Maribel So presents to physical therapy with complaints of L knee pain and swelling that started around [place] time in 2018. She reports that she fell on the L knee around Thanksgiving time without any result of pain or injury; however, she reports that she started to notice increased pain and swelling around the L thigh to L lower leg surrounding the knee. She reports that she feels like the knee and swelling are getting better, but she continues to have pain. She describes the pain to a burning sensation. She reports that the pain gets worse at night. She reports that the pain is worse with it either being fully extended or fully flexed for longer than 30 minutes. Furthermore, she reports that the L knee gives out and it can not be trusted. Pain location is L knee and described as burning. Pain scale is 2 on a ten point pain scale. Pain is worse with prolonged sitting, stairs. REHAB PROBLEM LIST: Increased Pain Decreased ROM Decreased Strength Decreased Endurance Decreased Balance Decreased Function Decreased Mobility Decreased Gait PREVIOUS MEDICAL HISTORY: See EMR OCCUPATION: Retired OBJECTIVE: Increased swelling from L mid thigh to L mid lower leg. Posture: She demonstrates rounded shoulder, increased thoracic kyphosis, and lumbar lordosis. ROM: She demonstrated reduced L knee extension and flexion with pain by 10% as compared to the L knee ROM. Strength: R hip flexion, abduction, extension, adduction, R knee flexion and extension, R ankle PF and DF: 4/5. L knee flexion, abduction, extension, adduction, L knee flexion and extension, and L ankle PF/DF. 3+/5. Palpation: TTP: over medial and lateral joint lines Sensation: Intact B L2-S2 Special Tests: Negative laxity with LCL, MCL, PCL, ACL. positive Vicente's. Repeated extension: worse during and worse following. Repeated flexion: pain during test and better following test. Mobility: Independent Gait: She demonstrates minimal antalgic gait, increased base of support, and decreased R step length along with decreased pelvic rotation. Balance: Will test in future ASSESSMENT: Maribel will benefit from skilled physical therapy addressing the listed impairments to improve function and QOL. Short Term Goals 2 weeks: Pt will demonstrate full L knee flexion and extension PROM-AROM without any pain to improve function and QOL. 6 weeks: Pt will demonstrate ability to sit for longer than hour without any L knee pain to improve function and QOL. 6 weeks: Pt will demonstrate the ability to go up and down stairs without any pain or sense that the L knee will give out to improve function and QOL. Patient's Goals stop pain, abolish swelling, and have the L knee quit buckling PLAN: Patient to be seen for Manual Therapy/STM/MET Strengthening/condition Ice/Heat Range of Motion Spinal Stabilization Work Hardening/Cond Stretching Iontophoresis Neuromuscular Re-ed Closed Chain Program Electrical Stim Posture/Body mechanics Gait Trg/Balance Trg Home Exercise Program Therapeutic Activities 2-3x/week for 6 Weeks If you have any questions, comments, or concerns about this report or plan, please contact me at . Thank you, Kareem Evans, PT, DPT MTDD
[2018-11-26] MEDS ORDERED: OXYC-865 PO ×2 (08:59→11:14)
[2018-11-26] MEDS ORDERED: CYCL10TA29 PO (09:02)
[2018-11-26] MEDS ORDERED: PIOG30TA71 PO (09:02)
== END 2018-11-11 18:00 | disposition home or self-care (01) ==
LOC: PT 09:00
PROVIDERS: ATTEND Orthopaedic Surgery
DX: M25.562 Pain in left knee (principal); M25.462 Effusion, left knee
CPT/HCPCS: 97162

== ENCOUNTER 2019-01-18 22:36 | Emergency (ER) | payer MEDICARE, OTHER ==
[2017-11-20 12:23] VITALS: Wt 75.5 kg
[~2019-01-18 22:36] MED LIST changes: +CYCL10TA29 PO; +DULO60CA7 PO; +OXYC-865 PO; +PIOG30TA71 PO
--- NOTE | 2019-01-18 23:43 | ER Report ---
History and Physical Time Seen By MD: 23:23 Hx. of Stated Complaint: HASN'T CHECKED HER SUGAR IN AWHILE. CHECKED IT THIS MORNING AT IT WAS 244, TONIGHT IT IS 389. CURRENTLY 270 ON ER ACCUCHECK HPI/ROS CHIEF COMPLAINT: elevated blood sugars HISTORY OF PRESENT ILLNESS: This is a 73 year old female. She has not been check ing blood sugars regularly, as has had good control of diabetes. Checked this morning and was elevated. Several other times today elevated as well. Unsure why and not eating differently. Takes Lantus insulin and was wondering if this needed to be increased or if other changes need to be made. She does drink a lot of water, but does not think this has increased and is not more thirsty. Not having dysuria, and does not think more frequently, but has a different odor to the urine recently. Had steroid injections in her back x 2 the last few weeks and wondered if that could cause this. REVIEW OF SYSTEMS: Respiratory: No cough, no dyspnea. Cardiovascular: No chest pain, no palpitations. Gastrointestinal: No vomiting, no abdominal pain. Musculoskeletal: No pain or cramps. Allergies: Coded Allergies: codeine (Verified Allergy, Intermediate, rash, 11/19/17) melatonin (Verified Allergy, Mild, Nightmares/night terrors, 11/19/17) exenatide (Verified Adverse Reaction, Intermediate, Diarrhea, 05/14/18) Home Meds Active Scripts Cephalexin Monohydrate (CEPHALEXIN) 500 Mg Cap, 500 MG PO Q8H, #15 CAP 0 Refills Prov:LUIS EDUARDO TRIPATHI MD 01/19/19 Insulin Glargine,Hum.rec.anlog (Basaglar Kwikpen U-100) 100 Unit/Ml (3 Ml) Insuln.pen, 25 UNITS SUBQ DAILY, #2 BOX 3 Refills Prov:TRAVON BUSBY MD 01/09/19 Duloxetine HCl (Duloxetine HCl) 60 Mg Capsule.dr, 1 CAP PO DAILY, #30 CAP Prov:TRAVON BUSBY MD 01/07/19 Metoprolol Tartrate (METOPROLOL TARTRATE) 25 Mg Tablet, 0.5 MG PO BID, #90 TAB 3 Refills Prov:TRAVON BUSBY MD 12/31/18 Cyclobenzaprine Hcl (CYCLOBENZAPRINE HCL) 10 Mg Tablet, 10 MG PO TID, #30 TAB Prov:TRAVON BUSBY MD 12/12/18 Esomeprazole Magnesium (NEXIUM) 40 Mg Capsule.dr, 1 CAP PO QDAY, #90 CAP Prov:TRAVON BUSBY MD 10/15/18 Trazodone Hcl (TRAZODONE HCL) 100 Mg Tablet, 100 MG PO QHS, #30 TAB 11 Refills Prov:TRAVON BUSBY MD 08/01/18 Levothyroxine Sodium (LEVOTHYROXINE SODIUM) 75 Mcg Tablet, 75 MCG PO QDAY, #90 TAB 3 Refills Prov:TRAVON BUSBY MD 07/15/18 Triamterene/Hydrochlorothiazid (DYAZIDE 37.5-25 CAPSULE) 1 Each Capsule, 1 CAP PO DAILY, #90 CAPSULE 3 Refills Prov:TRAVON BUSBY MD 02/14/18 Atorvastatin Calcium (ATORVASTATIN CALCIUM) 40 Mg Tablet, 1 TAB PO QDAY, #90 TAB 3 Refills Prov:TRAVON BUSBY MD 01/23/18 Pen Needle, Diabetic, Safety (PEN NEEDLE) 1 Each Dis.needle, EACH MC DIRECTED, #1 1 Refill use to inject Basaglar QHS Prov:TRAVON BUSBY MD 01/14/18 Magnesium Oxide (MAGNESIUM OXIDE) 400 Mg Tablet, 400 MG PO DAILY, #30 TAB 11 Refills Prov:TRAVON BUSBY MD 11/26/17 Reported Medications Pioglitazone Hcl (PIOGLITAZONE HCL) 30 Mg Tablet, 30 MG PO QDAY 11/26/18 Ferrous Sulfate (IRON) 325 Mg Tablet, 325 MG PO 10/23/18 Aspirin (ASPIRIN) 81 Mg Tab.chew, 81 MG PO DAILY, TAB.CHEW 07/25/17 Reviewed Nurses Notes: Yes Hx Smoking: No Smoking Status: Never Smoker Hx Substance Use Disorder: No Hx Alcohol Use: No Constitutional Vital Sign - Last 24 Hours 01/18/19 01/18/19 01/18/19 01/18/19 22:36 22:50 22:51 23:00 Temp 97.8 Pulse ??? 93 ??? Resp 14 B/P (MAP) 199/95 199/95 (129) 168/92 (117) Pulse Ox 94 O2 Delivery Room Air 01/18/19 01/18/19 01/18/19 01/18/19 23:06 23:21 23:30 23:36 Pulse 81 81 91 B/P (MAP) 160/101 (120) Pulse Ox 93 95 92 01/18/19 01/19/19 01/19/19 01/19/19 23:51 00:00 00:06 00:21 Pulse 79 90 87 B/P (MAP) 172/93 (119) Pulse Ox 94 95 97 01/19/19 01/19/19 01/19/19 01/19/19 00:26 00:30 00:56 01:00 Pulse 86 75 B/P (MAP) 156/90 (112) 165/100 (121) Pulse Ox 95 94 01/19/19 01/19/19 01/19/19 01/19/19 01:26 01:30 01:56 02:00 Pulse 91 76 B/P (MAP) 169/100 (123) 158/99 (118) Pulse Ox 96 94 Physical Exam General Appearance: Alert, no distress. Eyes: Pupils equal and round no injection. ENT: Normal oral mucosa. Moist mucous membranes. Respiratory: Lungs are clear to auscultation. Cardiac: regular rate and rhythm, normal pulses and peripheral perfusion, no edema. Gastrointestinal: Abdomen is soft and non tender, bowel sounds normal. No CVA tenderness. Musculoskeletal: Extremities have full range of motion. Skin: No rashes. Neuro: Normal sensation. DIFFERENTIAL DIAGNOSIS: After history and physical exam differential diagnosis was considered for patient with some elevated blood sugars. Could be due to steroid injections in back. Does not appear to be in distress, vital are normal. Will check metabolic panel and acetone as well as urine. Medical Decision Making Data Points Result Diagram: 01/18/19 2348 01/18/19 2348 Laboratory Hematology Test 01/18/19 22:51 01/18/19 23:48 Urine Color Yellow Urine Clarity Cloudy Urine pH 5.0 pH (4.8-9.5) Urine Specific [place] 1.021 Urine Protein Negative mg/dL (NEGATIVE) Urine Glucose (UA) 50 mg/dL (NEGATIVE) Urine Ketones Negative mg/dL (NEGATIVE) Urine Blood Small (NEGATIVE) Urine Nitrite Negative (NEGATIVE) Urine Bilirubin Negative (NEGATIVE) Urine Urobilinogen Negative mg/dL (0.2-1.9) Urine Leukocyte Esterase Large (NEGATIVE) Urine RBC 6 /HPF (0-2/HPF) Urine WBC 425 /HPF (0-5/HPF) Urine Squamous Epithelial Cells Many /LPF (</=FEW) Urine Transitional Epithelial Cells Many /LPF (NONE-FEW) Urine Bacteria Few /HPF (NONE-FEW) Urine Mucus None /HPF (NONE-FEW) Red Blood Count 5.07 M/uL (4.17-5.56) Mean Corpuscular Volume 89.4 fL (80.0-96.0) Mean Corpuscular Hemoglobin 30.5 pg (26.0-33.0) Mean Corpuscular Hemoglobin Concent 34.1 g/dL (32.0-36.0) Red Cell Distribution Width 13.4 % (11.5-14.5) Mean Platelet Volume 7.5 fL (7.2-11.1) Neutrophils (%) (Auto) 68.9 % (39.4-72.5) Lymphocytes (%) (Auto) 21.2 % (17.6-49.6) Monocytes (%) (Auto) 8.5 % (4.1-12.4) Eosinophils (%) (Auto) 1.0 % (0.4-6.7) Basophils (%) (Auto) 0.4 % (0.3-1.4) Nucleated RBC Relative Count (auto) 0.0 /100WBC Neutrophils # (Auto) 5.8 K/uL (2.0-7.4) Lymphocytes # (Auto) 1.8 K/uL (1.3-3.6) Monocytes # (Auto) 0.7 K/uL (0.3-1.0) Eosinophils # (Auto) 0.1 K/uL (0.0-0.5) Basophils # (Auto) 0.0 K/uL (0.0-0.1) Nucleated RBC Absolute Count (auto) 0.00 K/uL Sodium Level 134 mmol/L (137-145) Potassium Level 3.5 mmol/L (3.5-5.0) Chloride Level 99 mmol/L (98-107) Carbon Dioxide Level 24 mmol/L (22-31) Blood Urea Nitrogen 40 mg/dl (7-18) Creatinine 1.30 mg/dl (0.52-1.04) Glomerular Filtration Rate Calc 40.3 Random Glucose 285 mg/dl (75-110) Calcium Level 9.3 mg/dl (8.4-10.2) Total Bilirubin 0.3 mg/dl (0.2-1.3) Aspartate Amino Transf (AST/SGOT) 28 U/L (0-35) Alanine Aminotransferase (ALT/SGPT) 34 U/L (0-56) Alkaline Phosphatase 172 U/L (0-126) Total Protein 6.6 g/dl (6.3-8.2) Albumin 3.9 g/dl (3.5-5.0) Acetone, Qualitative Negative Chemistry Test 01/18/19 22:51 01/18/19 23:48 Urine Color Yellow Urine Clarity Cloudy Urine pH 5.0 pH (4.8-9.5) Urine Specific [place] 1.021 Urine Protein Negative mg/dL (NEGATIVE) Urine Glucose (UA) 50 mg/dL (NEGATIVE) Urine Ketones Negative mg/dL (NEGATIVE) Urine Blood Small (NEGATIVE) Urine Nitrite Negative (NEGATIVE) Urine Bilirubin Negative (NEGATIVE) Urine Urobilinogen Negative mg/dL (0.2-1.9) Urine Leukocyte Esterase Large (NEGATIVE) Urine RBC 6 /HPF (0-2/HPF) Urine WBC 425 /HPF (0-5/HPF) Urine Squamous Epithelial Cells Many /LPF (</=FEW) Urine Transitional Epithelial Cells Many /LPF (NONE-FEW) Urine Bacteria Few /HPF (NONE-FEW) Urine Mucus None /HPF (NONE-FEW) White Blood Count 8.5 k/uL (4.5-11.0) Red Blood Count 5.07 M/uL (4.17-5.56) Hemoglobin 15.5 g/dL (12.0-16.0) Hematocrit 45.4 % (34.0-47.0) Mean Corpuscular Volume 89.4 fL (80.0-96.0) Mean Corpuscular Hemoglobin 30.5 pg (26.0-33.0) Mean Corpuscular Hemoglobin Concent 34.1 g/dL (32.0-36.0) Red Cell Distribution Width 13.4 % (11.5-14.5) Platelet Count 248 K/uL (150-450) Mean Platelet Volume 7.5 fL (7.2-11.1) Neutrophils (%) (Auto) 68.9 % (39.4-72.5) Lymphocytes (%) (Auto) 21.2 % (17.6-49.6) Monocytes (%) (Auto) 8.5 % (4.1-12.4) Eosinophils (%) (Auto) 1.0 % (0.4-6.7) Basophils (%) (Auto) 0.4 % (0.3-1.4) Nucleated RBC Relative Count (auto) 0.0 /100WBC Neutrophils # (Auto) 5.8 K/uL (2.0-7.4) Lymphocytes # (Auto) 1.8 K/uL (1.3-3.6) Monocytes # (Auto) 0.7 K/uL (0.3-1.0) Eosinophils # (Auto) 0.1 K/uL (0.0-0.5) Basophils # (Auto) 0.0 K/uL (0.0-0.1) Nucleated RBC Absolute Count (auto) 0.00 K/uL Glomerular Filtration Rate Calc 40.3 Calcium Level 9.3 mg/dl (8.4-10.2) Total Bilirubin 0.3 mg/dl (0.2-1.3) Aspartate Amino Transf (AST/SGOT) 28 U/L (0-35) Alanine Aminotransferase (ALT/SGPT) 34 U/L (0-56) Alkaline Phosphatase 172 U/L (0-126) Total Protein 6.6 g/dl (6.3-8.2) Albumin 3.9 g/dl (3.5-5.0) Acetone, Qualitative Negative Toxicology Test 01/18/19 23:48 Acetone, Qualitative Negative Urinalysis Test 01/18/19 22:51 Urine Color Yellow Urine Clarity Cloudy Urine pH 5.0 pH (4.8-9.5) Urine Specific [place] 1.021 Urine Protein Negative mg/dL (NEGATIVE) Urine Glucose (UA) 50 mg/dL (NEGATIVE) Urine Ketones Negative mg/dL (NEGATIVE) Urine Blood Small (NEGATIVE) Urine Nitrite Negative (NEGATIVE) Urine Bilirubin Negative (NEGATIVE) Urine Urobilinogen Negative mg/dL (0.2-1.9) Urine Leukocyte Esterase Large (NEGATIVE) Urine RBC 6 /HPF (0-2/HPF) Urine WBC 425 /HPF (0-5/HPF) Urine Squamous Epithelial Cells Many /LPF (</=FEW) Urine Transitional Epithelial Cells Many /LPF (NONE-FEW) Urine Bacteria Few /HPF (NONE-FEW) Urine Mucus None /HPF (NONE-FEW) Microbiology Microbiology Date/Time Source Procedure Growth Status 01/19/19 00:00 Clean Catch Midstream Ur Urine Culture - Preliminary NO GROWTH SO FAR, SET LATE. REINCUBATED Resulted ED Course/Re-evaluation ED Course Urine with some changes that could represent infection. Blood sugars can be up because of this, urine culture obtained and will start antibiotic. Also possible with some increase from steroid injections. Not at dangerous levels at this time. Reviewed with patient that having sugars elevated at these levels for short time would not be dangerous, but need to follow to make sure coming down with treatment of urine or with the steroids wearing off. Would not recommend increasing Lantus tonight, but to follow-up with PCP early this week for re- evaluation. She will keep track of sugars this weekend and into next week and bring these readings to her PCP for further evaluation to make decisions about medications. Decision to Disposition Date: January 19, 2019 Decision to Disposition Time: 01:52 Depart Departure Latest Vital Signs Vital Signs Date Time Temp Pulse Resp B/P (MAP) Pulse Ox O2 Delivery O2 Flow Rate FiO2 01/19/19 02:00 158/99 (118) 01/19/19 01:56 76 94 01/18/19 22:50 97.8 14 Room Air Impression: Primary Impression: Urinary tract infection Additional Impression: Hyperglycemia Condition: Improved Disposition: HOME OR SELF-CARE Referrals: TRAVON BUSBY MD (PCP) New Scripts Cephalexin Monohydrate (CEPHALEXIN) 500 Mg Cap 500 MG PO Q8H, #15 CAP 0 Refills Prov: LUIS EDUARDO TRIPATHI MD 01/19/19 Patient Instructions: Urinary Tract Infection in Women (ED) Additional Instructions: Take Cephalexin 500mg three times a day for 5 days. Keep track of your blood sugars for the next few days and bring these readings to Dr. Busby. Call Dr. Busby on Sunday to schedule a follow-up visit with her. Problem Qualifiers Primary Impression: Urinary tract infection Urinary tract infection type: acute cystitis Hematuria presence: without hematuria Qualified Codes: N30.00 - Acute cystitis without hematuria LUIS EDUARDO TRIPATHI MD January 18, 2019 23:43
[2019-01-19 00:18] LABS: PLATELET COUNT, AUTOMATED 248 K/uL (150-450)
[2019-01-19] MEDS ORDERED: CEPH500C24 PO (01:54)
[2019-01-19] MEDS ORDERED: CEPHALEXIN MONO 500 MG CAP PO ONE (01:55)
[2019-01-19 02:00] VITALS: BP 158/99
== END 2019-01-19 02:16 | disposition home or self-care (01) ==
LOC: ER 23:02
DX: N30.00 Acute cystitis without hematuria (principal); E11.65 Type 2 diabetes mellitus with hyperglycemia; Z79.4 Long term (current) use of insulin
CPT/HCPCS: 36415; 81001; 82009; 85025; 87088; 99283; A9270; 82040; 82247; 82310; 82374; 82435; 82565; 82947; 84075; 84132; 84155; 84295; 84450; 84460; 84520; 87077; 87186

== ENCOUNTER → 2019-01-24 | Outpatient (CLI) | payer MEDICARE, OTHER ==
[2017-11-20 12:23] VITALS: BMI 33.1
[~2019-01-24] MED LIST changes: +CEPH500C24 PO; +SERT25TA87 PO
== END ==
LOC: LAB 09:32
PROVIDERS: ATTEND Emergency Medicine
DX: N39.0 Urinary tract infection, site not specified (principal)
CPT/HCPCS: 81001

== ENCOUNTER → 2019-04-17 | Outpatient (CLI) | payer MEDICARE, OTHER ==
[2017-11-20 12:23] VITALS: BMI 33.1
[~2019-04-17] MED LIST changes: -RANI-366 PO; +RANI-54 PO; +SERT-184 PO; -TRAZ50TA34 PO; +TRAZ50TA52 PO
== END ==
LOC: LAB 09:19
PROVIDERS: ATTEND Internal Medicine
DX: I25.118 Atherosclerotic heart disease of native coronary artery with other forms of angina pectoris (principal); N28.9 Disorder of kidney and ureter, unspecified
CPT/HCPCS: 36415; 82040; 82247; 82310; 82374; 82435; 82465; 82565; 82947; 83718; 84075; 84132; 84155; 84295; 84450; 84460; 84478; 84520